=== PATIENT | female | born 1980 | race Caucasian/White ===

== ENCOUNTER 2017-02-14 00:08 | Inpatient (IN) | payer BC ==
[2017-02-14] MEDS ORDERED: ceFAZolin 2 GM in Premix Bag 1 BAG IV ONE (00:13)
[2017-02-14] MEDS ORDERED: Sodium Chloride 0.9% 10 ML Syringe FLUSH PRN (00:13)
[2017-02-14] MEDS ORDERED: Metoclopramide 10 MG/2 ML SDV IVPUSH ONE (00:13)
[2017-02-14] MEDS ORDERED: Citric Acid/Sodium Citrate Solution 30 ML Cup PO ONE (00:13)
[2017-02-14] MEDS ORDERED: Oxytocin/Lactated Ringers 10 UNIT/1,000 ML BAG IV SCH (00:15)
[2017-02-14] MEDS ORDERED: Lactated Ringers 1,000 ML IV SCH (00:15)
[2017-02-14] MEDS ORDERED: Bupivacaine 0.5% 30 ML SDV ONE (00:25)
[2017-02-14] MEDS ORDERED: ceFAZolin 1 GM Vial ONE (00:45)
[2017-02-14] MEDS ORDERED: Phenylephrine/Normal Saline 100 MCG/ML 10 ML Syringe ONE (00:45)
[2017-02-14] MEDS ORDERED: Morphine PF 10 MG/10 ML SDV ONE (00:45)
[2017-02-14] MEDS ORDERED: Oxytocin 10 Units/1 ML SDV ONE (00:45)
[2017-02-14] MEDS ORDERED: Ondansetron 4 MG/2 ML SDV ONE (00:45)
[2017-02-14] MEDS ORDERED: Ketorolac 30 MG/ML SDV ONE (00:45)
[2017-02-14] MEDS ORDERED: Lactated Ringers 1,000 ML ONE (00:45)
--- NOTE | 2017-02-14 00:48 | PCM.PREANE ---
Preanesthetic Assessment - Physical Assessment Pulse: 125 O2 Sat by Pulse Oximetry: 98 Respiratory Rate: 16 Blood Pressure: 127/60 Temperature: 36.2 C Vital Signs: Last Vital Signs Temp 36.2 C 02/14/17 00:28 Pulse 125 H 02/14/17 00:28 Resp 16 02/14/17 00:28 BP 127/60 02/14/17 00:28 Pulse Ox 98 02/14/17 00:28 - Lab Values: Laboratory Last Values WBC 12.12 K/mm3 (3.98-10.04) H 02/14/17 00:20 RBC 4.04 M/mm3 (3.98-5.22) 02/14/17 00:20 Hgb 13.2 gm/L (11.2-15.7) 02/14/17 00:20 Hct 37.8 % (34.1-44.9) 02/14/17 00:20 MCV 93.6 fl (79.4-94.8) 02/14/17 00:20 MCH 32.7 pg (25.6-32.2) H 02/14/17 00:20 MCHC 34.9 g/dl (32.2-35.5) 02/14/17 00:20 RDW Std Deviation 45.8 fL (36.4-46.3) 02/14/17 00:20 Plt Count 177 K/mm3 (182-369) L 02/14/17 00:20 MPV 11.1 fl (9.4-12.3) 02/14/17 00:20 Neut % (Auto) 78.4 % (34.0-71.1) H 02/14/17 00:20 Lymph % (Auto) 14.4 % (19.3-51.7) L 02/14/17 00:20 [place] % (Auto) 6.1 % (4.7-12.5) 02/14/17 00:20 Eos % (Auto) 0.7 (0.7-5.8) 02/14/17 00:20 Baso % (Auto) 0.1 % (0.1-1.2) 02/14/17 00:20 Neut # (Auto) 9.50 K/mm3 (1.56-6.13) H 02/14/17 00:20 Lymph # (Auto) 1.75 K/mm3 (1.18-3.74) 02/14/17 00:20 [place] # (Auto) 0.74 K/mm3 (0.24-0.36) H 02/14/17 00:20 Eos # (Auto) 0.08 K/mm3 (0.04-0.36) 02/14/17 00:20 Baso # (Auto) 0.01 K/mm3 (0.01-0.08) 02/14/17 00:20 - Allergies Allergies/Adverse Reactions: Allergies Allergy/AdvReac Type Severity Reaction Status Date / Time Dairy Products AdvReac Other Verified 02/14/17 00:01 PreAnesthesia Questionnaire - CURRENT (IN HOUSE) MEDS Current Meds: Current Medications Lactated Ringer's (Ringers, Lactated) 1,000 mls @ 125 mls/hr IV [facility]ED [facility] Last Admin: 02/14/17 00:32 Dose: 125 mls/hr Oxytocin/Lactated Ringer's (Pitocin In Lr 10 Units/1,000 Ml) 10 unit in 1,000 mls @ 100 mls/hr IV [facility] Sodium Chloride (Saline Flush) 10 ml FLUSH ASDIRECTED PRN PRN Reason: Keep Vein Open Discontinued Medications Bupivacaine HCl (Marcaine 0.5%) Confirm Administered Dose 30 ml .ROUTE .STK-MED ONE Stop: 02/14/17 00:26 Cefazolin Sodium (Ancef) Confirm Administered Dose 2 gm .ROUTE .STK-MED ONE Stop: 02/14/17 00:46 Citric Acid/Sodium Citrate (Bicitra Solution) 30 ml PO ONETIME ONE Stop: 02/14/17 00:14 Last Admin: 02/14/17 00:32 Dose: 30 ml Cefazolin Sodium/Dextrose 2 gm (/ Premix) 50 mls @ 100 mls/hr IV ONETIME ONE Stop: 02/14/17 00:42 Lactated Ringer's (Ringers, Lactated) Confirm Administered Dose 1,000 mls @ as directed .ROUTE .STK-MED ONE Stop: 02/14/17 00:46 Ketorolac Tromethamine (Toradol) Confirm Administered Dose 30 mg .ROUTE .STK- MED ONE Stop: 02/14/17 00:46 Metoclopramide HCl (Reglan) 10 mg IVPUSH ONETIME ONE Stop: 02/14/17 00:14 Last Admin: 02/14/17 00:32 Dose: 10 mg Morphine Sulfate (Duramorph Pf) Confirm Administered Dose 10 mg .ROUTE .STK-MED ONE Stop: 02/14/17 00:46 Ondansetron HCl (Zofran) Confirm Administered Dose 4 mg .ROUTE .STK-MED ONE Stop: 02/14/17 00:46 Oxytocin (Pitocin) Confirm Administered Dose 10 unit .ROUTE .STK-MED ONE Stop: 02/14/17 00:46 Phenylephrine HCl (Phenylephrine In Ns 100 Mcg/Ml) Confirm Administered Dose 1 mg .ROUTE .STK-MED ONE Stop: 02/14/17 00:46 Preanesthetic Assessment - ANESTHESIA/TRANSFUSION/FAMILY HX Anesthesia/Transfusion History: No Prior Anesthesia, No Prior Transfusion(s) Family History of Anesthesia Reaction: No Intubation History: Unknown - REVIEW OF SYSTEMS Constitutional: Reports: no symptoms 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 Respiratory: Reports: no symptoms Cardiovascular: Reports: no symptoms GI: Reports: no symptoms Other: Reports: Easy Bruising - PHYSICAL ASSESSMENT HR: 125 O2 Sat by Pulse Oximetry: 98 RR: 16 BP: 127/60 Temp: 36.2 C Vital Signs: Last Vital Signs Temp 36.2 C 02/14/17 00:28 Pulse 125 H 02/14/17 00:28 Resp 16 02/14/17 00:28 BP 127/60 02/14/17 00:28 Pulse Ox 98 02/14/17 00:28 Height: 1.57 m Weight: 74.642 kg NPO Status Date: 02/13/17 NPO Status Time: 19:00 ASA Class: 2E Mental Status: Alert & Oriented x3 Airway Class: Mallampati = 2 Dentition: Reports: Normal Dentition, Caries Thyro-Mental Finger Breadths: 3 Mouth Opening Finger Breadths: 3 ROM/Head Extension: Full Respiratory Status: lungs clear to auscultation bilaterally Cardiovascular Status: regular rate & rhythm, normal S1, S2, no murmur, blood pressure WNL - LAB Values: Laboratory Last Values WBC 12.12 K/mm3 (3.98-10.04) H 02/14/17 00:20 RBC 4.04 M/mm3 (3.98-5.22) 02/14/17 00:20 Hgb 13.2 gm/L (11.2-15.7) 02/14/17 00:20 Hct 37.8 % (34.1-44.9) 02/14/17 00:20 MCV 93.6 fl (79.4-94.8) 02/14/17 00:20 MCH 32.7 pg (25.6-32.2) H 02/14/17 00:20 MCHC 34.9 g/dl (32.2-35.5) 02/14/17 00:20 RDW Std Deviation 45.8 fL (36.4-46.3) 02/14/17 00:20 Plt Count 177 K/mm3 (182-369) L 02/14/17 00:20 MPV 11.1 fl (9.4-12.3) 02/14/17 00:20 Neut % (Auto) 78.4 % (34.0-71.1) H 02/14/17 00:20 Lymph % (Auto) 14.4 % (19.3-51.7) L 02/14/17 00:20 [place] % (Auto) 6.1 % (4.7-12.5) 02/14/17 00:20 Eos % (Auto) 0.7 (0.7-5.8) 02/14/17 00:20 Baso % (Auto) 0.1 % (0.1-1.2) 02/14/17 00:20 Neut # (Auto) 9.50 K/mm3 (1.56-6.13) H 02/14/17 00:20 Lymph # (Auto) 1.75 K/mm3 (1.18-3.74) 02/14/17 00:20 [place] # (Auto) 0.74 K/mm3 (0.24-0.36) H 02/14/17 00:20 Eos # (Auto) 0.08 K/mm3 (0.04-0.36) 02/14/17 00:20 Baso # (Auto) 0.01 K/mm3 (0.01-0.08) 02/14/17 00:20 Reviewed and noted. - ALLERGIES Allergies/Adverse Reactions: Allergies Allergy/AdvReac Type Severity Reaction Status Date / Time Dairy Products AdvReac Other Verified 02/14/17 00:01 - ANESTHESIA PLAN Preop Beta Lisa: No Anesthesia Type Planned: Spinal - ACKNOWLEDGEMENTS Pt an Appropriate Candidate for the Planned Anesthesia: Yes Alternatives and Risks of Anesthesia Discussed w Pt/Guardian: Yes Pt/Guardian Understands and Agrees with Anesthesia Plan: Yes
--- NOTE | 2017-02-14 00:50 | PCM.OPNOTE ---
- General Post-Op/Procedure Note Date of Surgery/Procedure: 02/14/17 Operative Procedure(s): primary section - low transverse Findings: viable male, vertex, normal uterus tubes and ovaries. Baby boy at 0118, 8/9 APGARS, 8#1oz Pre Op Diagnosis: labor, history of 4th degree laceration, IUP at 39w2 Post-Op Diagnosis: Same Anesthesia Technique: Spinal Primary Surgeon: Maritza Griffith Fluid Replacement, Intraop: 1,100 Output, Urine Amount: 40 EBL in mLs: 500 Complications: None Condition: Good Free Text/Narrative:: The patient was taken to the operating room where spinal anesthesia was dosed to surgical levels without difficulty. The patient was prepped and draped in the usual sterile fashion in the dorsal supine position with a leftward tilt. A Pfannenstiel skin incision was made with the scalpel and carried through to the underlying layer of fascia. The fascia was incised in the midline and extended laterally using Dee scissors. Alessio clamps were used to elevate the superior aspect of the fascial incision, which was elevated, and the underlying rectus muscles were dissected off bluntly and using Dee scissors. Attention was then turned to the inferior aspect of the fascial incision, which in similar fashion was grasped with Alessio clamps, elevated, and the underlying rectus muscles were dissected off bluntly and using the dee. The rectus muscles were dissected in the midline. The peritoneum was identified and entered using Metzenbaum scissors; this incision was extended superiorly and inferiorly with good visualization of the bladder. The bladder blade was inserted. The vesicouterine peritoneum was identified and entered sharply using Metzenbaum scissors. This incision was extended laterally and the bladder flap was created digitally. The bladder blade was reinserted. The lower uterine segment was incised in a transverse fashion using the scalpel and extended using bandage scissors as well as manual traction. Clear fluid was noted. The infant was subsequently delivered by flexing the head to the incision. Body and shoulders followed without difficulty. The cord was clamped and cut. The infant was subsequently handed to the awaiting screening technician whose presence had been requested.. The placenta was delivered spontaneously intact with a three-vessel cord noted. The uterus was exteriorized and cleared of all clots and debris. The uterine incision was repaired in 2 layers using 0 monocryl. Hemostasis was visualized. Hemostasis was visualized bilaterally. The uterus was returned to the abdomen. The uterine incision was reexamined and it was noted to be hemostatic. The pelvis was copiously irrigated. The fascia was closed with 1 PDS suture, and the skin was closed with 3-0 monocryl. Sponge, lap, and instrument counts were correct x2. The patient was stable at the completion of the procedure and was subsequently transferred to the recovery room in stable condition.
[2017-02-14] MEDS ORDERED: Diphtheria,Pertussis(Acell),Tetanus Vaccine 0.5 ML SDV inactive IM ONE (01:11)
[2017-02-14] MEDS ORDERED: fentaNYL 100 MCG/2 ML SDV IVPUSH PRN (01:24)
[2017-02-14] MEDS ORDERED: ePHEDrine 50 MG/ML SDV IVPUSH PRN (01:24)
[2017-02-14] MEDS ORDERED: HYDROmorphone 0.5 MG/0.5 ML Syringe IVPUSH PRN (01:24)
[2017-02-14] MEDS ORDERED: Ondansetron 4 MG/2 ML SDV IVPUSH PRN (01:24)
[2017-02-14] MEDS ORDERED: Meperidine PF 50 MG/ML Syringe IVPUSH PRN (01:24)
[2017-02-14] MEDS ORDERED: diphenhydrAMINE 50 MG/ML SDV IVPUSH PRN (01:24)
[2017-02-14] MEDS ORDERED: Phenylephrine 1 MG in Sodium Chloride 0.9% 10 ML IV SCH (01:30)
[2017-02-14] MEDS ORDERED: Meperidine PF 50 MG/ML Syringe ONE (01:41)
--- NOTE | 2017-02-14 02:07 | PCM.POSTAN ---
POST ANESTHESIA ASSESSMENT - MENTAL STATUS Mental Status: alert - VITAL SIGNS Pulse Rate: 98 SaO2: 99 Resp Rate: 14 Blood Pressure: 134/66 (patient shivering badly, demerol repeated.) Temperature: 36.9 C - RESPIRATORY Respiratory Status: respiratory rate WNL, airway patent, O2 saturation stable - CARDIOVASCULAR CV Status: pulse rate WNL, blood pressure stable - GASTROINTESTINAL GI Status: no symptoms - POST OP HYDRATION Hydration Status: adequate & stable
[2017-02-14] MEDS ORDERED: Docusate Sodium 100 MG Cap PO PRN (02:25)
[2017-02-14] MEDS ORDERED: Lanolin 100% Cream 7 GM Tube TOP PRN (02:25)
[2017-02-14] MEDS: Dextrose 5%-Lactated Ringers 1,000 ML IV SCH ×2 (03:30→08:35)
--- NOTE | 2017-02-14 09:11 | PCM48HPAN ---
Post Anesthesia Note - EVALUATION WITHIN 48HRS OF ANESTHETIC Vital Signs in Normal Range: Yes Patient Participated in Evaluation: Yes Respiratory Function Stable: Yes Airway Patent: Yes Cardiovascular Function Stable: Yes Hydration Status Stable: Yes Pain Control Satisfactory: Yes Nausea and Vomiting Control Satisfactory: Yes Mental Status Recovered: Yes - COMMENTS/OBSERVATIONS Free Text/Narrative:: Pt denies headache, fever/chills, nausea/vomiting. Reports residual "pins and needles" feeling in bilateral feet, and some lower extremity weakness. since surgery was only ~5-6 hrs ago, will monitor throughout day today for full resolution. drinking without problems. Reports spinal worked well.
[2017-02-14] MEDS ORDERED: Simethicone 80 MG Tab.Chew PO PRN (09:35)
[2017-02-14] MEDS ORDERED: Dextrose 5%-Lactated Ringers 1,000 ML IV SCH (09:45)
[2017-02-14] MEDS: Ibuprofen 600 MG Tab PO PRN ×2 (13:41→21:24)
[2017-02-14] MEDS: Acetaminophen/oxyCODONE 325-5 MG Tab PO PRN (17:57)
[2017-02-15] MEDS: Acetaminophen/oxyCODONE 325-5 MG Tab PO PRN ×3 (01:38→18:49)
[2017-02-15] MEDS: Ibuprofen 600 MG Tab PO PRN ×2 (05:37→15:07)
--- NOTE | 2017-02-15 06:22 | PCM.PNPP ---
- General Info Date of Service: 02/15/17 Functional Status: Reports: pain controlled - Review of Systems General: Reports: No Symptoms HEENT: Reports: no symptoms Pulmonary: Reports: no symptoms Cardiovascular: Reports: No Symptoms Gastrointestinal: Reports: No symptoms Genitourinary: Reports: no symptoms Musculoskeletal: Reports: no symptoms Skin: Reports: no symptoms Neurological: Reports: No Symptoms Psychiatric: Reports: no symptoms - General Info Date of Service: 02/15/17 - Patient Data Vital Signs - most recent: Last Vital Signs Temp 36.7 C 02/15/17 05:36 Pulse 92 02/15/17 05:36 Resp 15 02/15/17 05:36 BP 122/44 L 02/15/17 05:36 Pulse Ox 100 02/15/17 05:36 Weight - most recent: 74.642 kg I&O - last 24 hours: Intake & Output 02/14/17 02/14/17 02/15/17 14:59 22:59 06:59 Intake Total 120 Output Total 850 1000 Balance -730 -1000 Lab Results - last 24 hrs: Laboratory Results - last 24 hr 02/14/17 02/15/17 Range/Units 00:20 05:03 WBC 9.15 (3.98-10.04) K/mm3 RBC 2.97 L (3.98-5.22) M/mm3 Hgb 9.6 L (11.2-15.7) gm/L Hct 29.6 L (34.1-44.9) % MCV 99.7 H (79.4-94.8) fl MCH 32.3 H (25.6-32.2) pg MCHC 32.4 (32.2-35.5) g/dl RDW Std Deviation 48.2 H (36.4-46.3) fL Plt Count 138 L (182-369) K/mm3 MPV 10.7 (9.4-12.3) fl Blood Type O POSITIVE Gel Antibody Screen Negative Med Orders - Current: Current Medications Docusate Sodium (Colace) 100 mg PO BID PRN PRN Reason: Constipation Emollient Ointment (Lansinoh Hpa) 0 gm TOP ASDIRECTED PRN PRN Reason: Sore Nipples Dextrose/Lactated Ringer's (Dextrose 5%-Lactated Ringers) 1,000 mls @ 125 [facility] Last Admin: 02/14/17 13:56 Dose: 125 mls/hr Ibuprofen (Motrin) 600 mg PO Q6H PRN PRN Reason: Pain Last Admin: 02/15/17 05:37 Dose: 600 mg Oxycodone/Acetaminophen (Percocet 325-5 Mg) 2 tab PO Q6H PRN PRN Reason: Pain (moderate 4-6) Last Admin: 02/15/17 01:38 Dose: 1 tab Simethicone (Simethicone) 80 mg PO QID PRN PRN Reason: gas pain Discontinued Medications Bupivacaine HCl (Marcaine 0.5%) Confirm Administered Dose 30 ml .ROUTE .STK-MED ONE Stop: 02/14/17 00:26 Last Admin: 02/14/17 01:14 Dose: 20 ml Cefazolin Sodium (Ancef) Confirm Administered Dose 2 gm .ROUTE .STK-MED ONE Stop: 02/14/17 00:46 Citric Acid/Sodium Citrate (Bicitra Solution) 30 ml PO ONETIME ONE Stop: 02/14/17 00:14 Last Admin: 02/14/17 00:32 Dose: 30 ml Diphenhydramine HCl (Benadryl) 25 mg IVPUSH Q6H PRN PRN Reason: pruritis Diphtheria/Tetanus/Acell Pertussis (Boostrix) 0.5 ml IM .ONCE ONE Stop: 02/14/17 01:12 Ephedrine Sulfate (Ephedrine Sulfate) 5 mg IVPUSH ASDIRECTED PRN PRN Reason: Hypotension Fentanyl (Sublimaze) 50 mcg IVPUSH Q5M PRN PRN Reason: Pain Stop: 02/14/17 01:40 Hydromorphone HCl (Dilaudid) 0.5 mg IVPUSH Q15M PRN PRN Reason: severe pain Stop: 02/14/17 01:40 Lactated Ringer's (Ringers, Lactated) 1,000 mls @ 125 [facility] Last Admin: 02/14/17 00:32 Dose: 125 mls/hr Oxytocin/Lactated Ringer's (Pitocin In Lr 10 Units/1,000 Ml) 10 unit in 1,000 mls @ [facility] Cefazolin Sodium/Dextrose 2 gm (/ Premix) 50 mls @ 100 mls/hr IV ONETIME ONE Stop: 02/14/17 00:42 Last Admin: 02/14/17 03:45 Dose: Not Given Lactated Ringer's (Ringers, Lactated) Confirm Administered Dose 1,000 mls @ as directed .ROUTE .STK-MED ONE Stop: 02/14/17 00:46 Phenylephrine HCl 1 mg/ Sodium (Chloride) 10.1 mls @ 1 mls/sec IV TITRATE [facility] Dextrose/Lactated Ringer's (Dextrose 5%-Lactated Ringers) 1,000 mls @ 125 mls/ hr IV ASDIRECTED [facility] Stop: 02/14/17 11:14 Last Admin: 02/14/17 08:35 Dose: 125 mls/hr Ketorolac Tromethamine (Toradol) Confirm Administered Dose 30 mg .ROUTE .STK- MED ONE Stop: 02/14/17 00:46 Meperidine HCl (Demerol) 12.5 mg IVPUSH ONETIME PRN PRN Reason: shivering Stop: 02/15/17 01:25 Last Admin: 02/14/17 02:01 Dose: 12.5 mg Meperidine HCl (Demerol) Confirm Administered Dose 50 mg .ROUTE .STK-MED ONE Stop: 02/14/17 01:42 Metoclopramide HCl (Reglan) 10 mg IVPUSH ONETIME ONE Stop: 02/14/17 00:14 Last Admin: 02/14/17 00:32 Dose: 10 mg Morphine Sulfate (Duramorph Pf) Confirm Administered Dose 10 mg .ROUTE .STK-MED ONE Stop: 02/14/17 00:46 Ondansetron HCl (Zofran) Confirm Administered Dose 4 mg .ROUTE .STK-MED ONE Stop: 02/14/17 00:46 Ondansetron HCl (Zofran) 4 mg IVPUSH ONETIME PRN PRN Reason: Nausea/Vomiting Oxytocin (Pitocin) Confirm Administered Dose 10 unit .ROUTE .STK-MED ONE Stop: 02/14/17 00:46 Phenylephrine HCl (Phenylephrine In Ns 100 Mcg/Ml) Confirm Administered Dose 1 mg .ROUTE .STK-MED ONE Stop: 02/14/17 00:46 Sodium Chloride (Saline Flush) 10 ml FLUSH ASDIRECTED PRN PRN Reason: Keep Vein Open - Interaction Support Person: - Recovery Exam Fundal Tone: Firm Fundal Level: 1 Fingerbreadths Above Umbilicus Fundal Placement: Midline Lochia Amount: Small Lochia Color: Rubra/Red Perineum Description: Intact, Minimal Bruising/Swelling Episiotomy/Laceration: None Bladder Status: Voiding Urinary Elimination: Indwelling Catheter - Exam General: alert, oriented HEENT: Pupils equal Neck: supple Lungs: Clear to auscultation, Normal respiratory effort Cardiovascular: Regular Rate, Regular Rhythm Abdomen: bowel sounds present, soft, no tenderness Extremities: no edema Skin: warm, dry, intact Wound/Incisions: healing well Neurological: no new focal deficit Psy/Mental Status: alert, normal affect, normal mood - Problem List Review Problem List Initiated/Reviewed/Updated: Yes - My Orders Last 24 Hours: My Active Orders 02/14/17 06:58 Communication Order [RC] ASDIRECTED 02/14/17 09:35 Ibuprofen [Motrin] 600 mg PO Q6H PRN Simethicone 80 mg PO QID PRN 02/14/17 09:45 Dextrose 5%-Lactated Ringers 1,000 ml IV ASDIRECTED 02/14/17 Breakfast Regular Diet [DIET] 02/15/17 02:25 Heat Therapy [OM.PC] PRN - Assessment Assessment:: POD1 s/p 1LTCS for breech. Doing great. Pain controlled. - Plan Plan:: Term . Doing well. No issues.
[2017-02-16] MEDS: Ibuprofen 600 MG Tab PO PRN ×2 (00:17→09:22)
[2017-02-16] MEDS: Acetaminophen/oxyCODONE 325-5 MG Tab PO PRN ×2 (06:11→12:46)
[2017-02-16 11:19] VITALS: BP 128/76
--- NOTE | 2017-03-02 22:23 | PCM.DCSUM1 ---
Discharge Summary - Hospital Course Brief History: Admitted for active labor prior to scheduled - Discharge Data Discharge Date: 02/17/17 Discharge Disposition: Home, Self-Care 01 Condition: Good - Patient Summary/Data Operative Procedure(s) Performed: primary section - low transverse - Patient Instructions Diet: Usual Diet as Tolerated Activity: No Strenuous Activities Driving: Do Not Drive Showering/Bathing: May Shower, No Showering, No Tub Bathing/Swimming, May Shower in 3 Days, Shower in AM Notify Provider of: Fever, Increased Pain - Discharge Plan Home Medications: Home Meds PNV95/Ferrous Fumarate/FA [ Vitamin Tablet] 1 tab PO DAILY 02/14/17 [ History] Patient Handouts: , Home Care Instructions for Mom Referrals: Maritza Griffith MD [Primary Care Provider] - - Discharge Summary/Plan Comment DC Time >30 min.: No - General Info Date of Service: 03/02/17 Functional Status: Reports: pain controlled - Review of Systems General: Reports: No Symptoms HEENT: Reports: no symptoms Pulmonary: Reports: no symptoms Cardiovascular: Reports: No Symptoms Gastrointestinal: Reports: No symptoms Genitourinary: Reports: no symptoms Musculoskeletal: Reports: no symptoms Skin: Reports: no symptoms Neurological: Reports: No Symptoms Psychiatric: Reports: no symptoms - Patient Data Vitals - Most Recent: Last Vital Signs Temp 36.7 C 02/16/17 11:10 Pulse 90 02/16/17 11:10 Resp 16 02/16/17 11:10 BP 128/76 02/16/17 11:10 Pulse Ox 100 02/16/17 11:10 Weight - Most Recent: 74.642 kg I&O - Last 24 hours: Intake & Output 03/02/17 03/02/17 03/02/17 06:59 14:59 22:59 Intake Total 1100 Output Total 40 Balance 1060 Med Orders - Current: Current Medications Discontinued Medications Bupivacaine HCl (Marcaine 0.5%) Confirm Administered Dose 30 ml .ROUTE .STK-MED ONE Stop: 02/14/17 00:26 Last Admin: 02/14/17 01:14 Dose: 20 ml Cefazolin Sodium (Ancef) Confirm Administered Dose 2 gm .ROUTE .STK-MED ONE Stop: 02/14/17 00:46 Citric Acid/Sodium Citrate (Bicitra Solution) 30 ml PO ONETIME ONE Stop: 02/14/17 00:14 Last Admin: 02/14/17 00:32 Dose: 30 ml Diphenhydramine HCl (Benadryl) 25 mg IVPUSH Q6H PRN PRN Reason: pruritis Diphtheria/Tetanus/Acell Pertussis (Boostrix) 0.5 ml IM .ONCE ONE Stop: 02/14/17 01:12 Docusate Sodium (Colace) 100 mg PO BID PRN PRN Reason: Constipation Emollient Ointment (Lansinoh Hpa) 0 gm TOP ASDIRECTED PRN PRN Reason: Sore Nipples Ephedrine Sulfate (Ephedrine Sulfate) 5 mg IVPUSH ASDIRECTED PRN PRN Reason: Hypotension Fentanyl (Sublimaze) 50 mcg IVPUSH Q5M PRN PRN Reason: Pain Stop: 02/14/17 01:40 Hydromorphone HCl (Dilaudid) 0.5 mg IVPUSH Q15M PRN PRN Reason: severe pain Stop: 02/14/17 01:40 Lactated Ringer's (Ringers, Lactated) 1,000 mls @ 125 mls/hr IV ASDIRECTED [facility] Last Admin: 02/14/17 00:32 Dose: 125 mls/hr Oxytocin/Lactated Ringer's (Pitocin In Lr 10 Units/1,000 Ml) 10 unit in 1,000 mls @ 100 mls/hr IV ASDIRECTED [facility] Cefazolin Sodium/Dextrose 2 gm (/ Premix) 50 mls @ 100 mls/hr IV ONETIME ONE Stop: 02/14/17 00:42 Last Admin: 02/14/17 03:45 Dose: Not Given Lactated Ringer's (Ringers, Lactated) Confirm Administered Dose 1,000 mls @ as directed .ROUTE .STK-MED ONE Stop: 02/14/17 00:46 Phenylephrine HCl 1 mg/ Sodium (Chloride) 10.1 mls @ 1 mls/sec IV TITRATE [facility] Dextrose/Lactated Ringer's (Dextrose 5%-Lactated Ringers) 1,000 mls @ 125 mls/ hr IV ASDIRECTED [facility] Stop: 02/14/17 11:14 Last Admin: 02/14/17 08:35 Dose: 125 mls/hr Dextrose/Lactated Ringer's (Dextrose 5%-Lactated Ringers) 1,000 mls @ 125 mls/ hr IV ASDIRECTED [facility] Last Admin: 02/14/17 13:56 Dose: 125 mls/hr Ibuprofen (Motrin) 600 mg PO Q6H PRN PRN Reason: Pain Last Admin: 02/16/17 09:22 Dose: 600 mg Ketorolac Tromethamine (Toradol) Confirm Administered Dose 30 mg .ROUTE .STK- MED ONE Stop: 02/14/17 00:46 Meperidine HCl (Demerol) 12.5 mg IVPUSH ONETIME PRN PRN Reason: shivering Stop: 02/15/17 01:25 Last Admin: 02/14/17 02:01 Dose: 12.5 mg Meperidine HCl (Demerol) Confirm Administered Dose 50 mg .ROUTE .STK-MED ONE Stop: 02/14/17 01:42 Metoclopramide HCl (Reglan) 10 mg IVPUSH ONETIME ONE Stop: 02/14/17 00:14 Last Admin: 02/14/17 00:32 Dose: 10 mg Morphine Sulfate (Duramorph Pf) Confirm Administered Dose 10 mg .ROUTE .STK-MED ONE Stop: 02/14/17 00:46 Ondansetron HCl (Zofran) Confirm Administered Dose 4 mg .ROUTE .STK-MED ONE Stop: 02/14/17 00:46 Ondansetron HCl (Zofran) 4 mg IVPUSH ONETIME PRN PRN Reason: Nausea/Vomiting Oxycodone/Acetaminophen (Percocet 325-5 Mg) 2 tab PO Q6H PRN PRN Reason: Pain (moderate 4-6) Last Admin: 02/16/17 12:46 Dose: 1 tab Oxytocin (Pitocin) Confirm Administered Dose 10 unit .ROUTE .STK-MED ONE Stop: 02/14/17 00:46 Phenylephrine HCl (Phenylephrine In Ns 100 Mcg/Ml) Confirm Administered Dose 1 mg .ROUTE .STK-MED ONE Stop: 02/14/17 00:46 Simethicone (Simethicone) 80 mg PO QID PRN PRN Reason: gas pain Sodium Chloride (Saline Flush) 10 ml FLUSH ASDIRECTED PRN PRN Reason: Keep Vein Open - Exam General: Reports: alert, oriented HEENT: Reports: Pupils equal, Pupils reactive, EOMI, Mucous membr. moist/pink Neck: Reports: supple Lungs: Reports: Clear to auscultation, Normal respiratory effort Cardiovascular: Reports: Regular Rate, Regular Rhythm Abdomen: Reports: bowel sounds present, soft, no tenderness, no distension (Female) Exam: Normal external exam, Normal speculum exam, Normal bimanual exam Back Exam: Reports: normal inspection, full range of motion Extremities: Reports: no edema, normal pulses Skin: Reports: warm, dry, intact Wound/Incisions: Reports: healing well Neurological: Reports: no new focal deficit Psy/Mental Status: Reports: alert, normal affect, normal mood *Q Meaningful Use (DIS) - VTE *Q VTE Criteria *Q: - Stroke *Q Stroke Criteria *Q: - AMI *Q AMI Criteria *Q:
== END 2017-02-16 17:00 | disposition home or self-care (01) | DRG 540 ==
LOC: JD.OB 00:08 → MERGE 00:08
PROVIDERS: ADMIT Obstetrics & Gynecology; ATTEND Obstetrics & Gynecology
PROC: 10D00Z1 Extraction of Products of Conception, Low, Open Approach (ICD-10-PCS; principal; 2017-02-14)
DX: O82 Encounter for cesarean delivery without indication (principal); Z3A.39 39 weeks gestation of pregnancy; Z37.0 Single live birth; Z91.011 Allergy to milk products
CPT/HCPCS: 01961; 36415; 85025; 85027; 86850; 86900; 86901; 94762; A9270-GY; J0690; J1885; J2175; J2270; J2405; J2590; J2765; J7042; J7120

== ENCOUNTER 2018-12-25 13:08 | Inpatient (IN) | payer BC ==
[2018-12-25] MEDS ORDERED: Bupivacaine 0.5% 30 ML SDV ONE (14:28)
[2018-12-25] MEDS ORDERED: Nalbuphine 20 MG/ML 1 ML Syringe IVPUSH PRN (14:40)
[2018-12-25] MEDS ORDERED: Citric Acid/Sodium Citrate Solution 30 ML Cup PO ONE (14:40)
[2018-12-25] MEDS ORDERED: Metoclopramide 10 MG/2 ML SDV IVPUSH ONE (14:40)
[2018-12-25] MEDS ORDERED: ceFAZolin 2 GM in Premix Bag 1 BAG IV ONE (14:40)
[2018-12-25] MEDS ORDERED: Sodium Chloride 0.9% 10 ML Syringe FLUSH PRN (14:40)
[2018-12-25] MEDS ORDERED: Diphtheria,Pertussis(Acell),Tetanus Vaccine 0.5 ML Syringe IM ONE (14:45)
[2018-12-25] MEDS ORDERED: Lactated Ringers 1,000 ML IV SCH (14:45)
[2018-12-25] MEDS ORDERED: Oxytocin/Lactated Ringers 10 UNIT/1,000 ML BAG IV SCH (14:45)
--- NOTE | 2018-12-25 15:30 | PCM.PREANE ---
Preanesthetic Assessment - Anesthesia/Transfusion/Family Hx Anesthesia History: Prior Anesthesia Reaction Type of Anesthesia Reaction: Excessive Shivering, Other (see below) ( Significant convulsions/shaking per patient. Started prior to her spinal and continued for a few hours after surgery. ) Other Type of Anesthesia Reaction Comment: excessive shaking Family History of Anesthesia Reaction: Yes (Very sensitive.) Transfusion History: No Prior Transfusion(s) - Review of Systems General: No Symptoms Pulmonary: No Symptoms Cardiovascular: Other (Tachycardia. Baseline around 110. ) Gastrointestinal: No Symptoms Neurological: No Symptoms Other: Reports: None - Physical Assessment Pulse: 118 O2 Sat by Pulse Oximetry: 99 Respiratory Rate: 16 Blood Pressure: 129/86 Temperature: 37.4 C Vital Signs: Last Vital Signs Temp 37.4 C 12/25/18 13:25 Pulse 118 H 12/25/18 13:25 Resp 16 12/25/18 13:25 BP 129/86 12/25/18 13:25 Pulse Ox 99 12/25/18 13:25 Height: 1.57 m Weight: 80.286 kg ASA Class: 2 Mental Status: Alert & Oriented x3 Airway Class: Mallampati = 2 Dentition: Reports: Normal Dentition Thyro-Mental Finger Breadths: 3 Mouth Opening Finger Breadths: 3 ROM/Head Extension: Full Lungs: Clear to Auscultation, Normal Respiratory Effort Cardiovascular: Regular Rate, Regular Rhythm, Tachycardia - Lab Values: Laboratory Last Values Membrane Rupture Positive H 12/25/18 13:30 - Allergies Allergies/Adverse Reactions: Allergies Allergy/AdvReac Type Severity Reaction Status Date / Time Dairy Products AdvReac Other Verified 02/14/17 00:01 - Anesthesia Plan Pre-Op Medication Ordered: Antacids (Bicitra ), Other (Hold Metoclopramide. Questionable EPS effects with her last . ) - Acknowledgements Anesthesia Type Planned: Spinal Pt an Appropriate Candidate for the Planned Anesthesia: Yes Alternatives and Risks of Anesthesia Discussed w Pt/Guardian: Yes Pt/Guardian Understands and Agrees with Anesthesia Plan: Yes PreAnesthesia Questionnaire - Past Health History Medical/Surgical History: Denies Medical/Surgical History [employer] History: Reports: - Past Surgical History Female Surgical History: Reports: Section - SUBSTANCE USE Smoking Status *Q: Never Smoker Second Hand Smoke Exposure: No Recreational Drug Use History: No - HOME MEDS Home Medications: Home Meds PNV95/Ferrous Fumarate/FA [ Vitamin Tablet] 1 tab PO DAILY 02/14/17 [ History] - CURRENT (IN HOUSE) MEDS Current Meds: Current Medications Lactated Ringer's (Ringers, Lactated) 1,000 mls @ 125 mls/hr IV ASDIRECTED [facility] Last Admin: 12/25/18 15:23 Dose: 999 mls/hr Oxytocin/Lactated Ringer's (Pitocin In Lr 10 Units/1,000 Ml) 10 unit in 1,000 mls @ 500 mls/hr IV ASDIRECTED [facility] Nalbuphine HCl (Nubain) 10 mg IVPUSH Q2H PRN PRN Reason: pain Sodium Chloride (Saline Flush) 10 ml FLUSH ASDIRECTED PRN PRN Reason: Keep Vein Open Discontinued Medications Bupivacaine HCl (Marcaine 0.5%) Confirm Administered Dose 30 ml .ROUTE .STK-MED ONE Stop: 12/25/18 14:29 Citric Acid/Sodium Citrate (Bicitra Solution) 30 ml PO ONETIME ONE Stop: 12/25/18 14:41 Last Admin: 12/25/18 15:23 Dose: 30 ml Diphtheria/Tetanus/Acell Pertussis (Adacel) 0.5 ml IM .ONCE ONE Stop: 12/25/18 14:46 Cefazolin Sodium/Dextrose 2 gm (/ Premix) 50 mls @ 100 mls/hr IV ONETIME ONE Stop: 12/25/18 15:09 Metoclopramide HCl (Reglan) 10 mg IVPUSH ONETIME ONE Stop: 12/25/18 14:41 Last Admin: 12/25/18 15:24 Dose: Not Given
--- NOTE | 2018-12-25 15:36 | PCM.LDHP ---
L&D History of Present Illness - General Date of Service: 12/25/18 Admit Problem/Dx: Patient Status Order with Admit Dx/Problem 12/25/18 13:34 Patient Status [ADT] Routine 12/25/18 14:30 Patient Status [ADT] Routine Admission Diagnosis/Problem Admission Diagnosis/Problem Source of Information: Patient History Limitations: Reports: No Limitations - History of Present Illness Introduction:: 38 year old at 39+ here with SROM at 1045. No contractions. - Related Data Allergies/Adverse Reactions: Allergies Allergy/AdvReac Type Severity Reaction Status Date / Time Dairy Products AdvReac Other Verified 02/14/17 00:01 Home Medications: Home Meds PNV95/Ferrous Fumarate/FA [ Vitamin Tablet] 1 tab PO DAILY 02/14/17 [ History] Past Medical History - Past Health History Medical/Surgical History: Denies Medical/Surgical History [employer] History: Reports: - Past Surgical History Female Surgical History: Reports: Section Social & Family History - Family History Family Medical History: Noncontributory - Tobacco Use Smoking Status *Q: Never Smoker Second Hand Smoke Exposure: No - Caffeine Use Caffeine Use: Reports: None - Recreational Drug Use Recreational Drug Use: No H&P Review of Systems - Review of Systems: Review Of Systems: See Below General: Reports: No Symptoms HEENT: Reports: No Symptoms Pulmonary: Reports: No Symptoms Cardiovascular: Reports: No Symptoms Gastrointestinal: Reports: No Symptoms Genitourinary: Reports: No Symptoms Musculoskeletal: Reports: No Symptoms Skin: Reports: No Symptoms Psychiatric: Reports: No Symptoms Neurological: Reports: No Symptoms Hematologic/Lymphatic: Reports: No Symptoms Immunologic: Reports: No Symptoms L&D Exam - Exam Exam: See Below - Vital Signs Vital Signs: Last Vital Signs Temp 37.4 C 12/25/18 15:30 Pulse 118 H 12/25/18 15:30 Resp 16 12/25/18 15:30 BP 129/86 12/25/18 15:30 Pulse Ox 99 12/25/18 15:30 Weight: 80.286 kg - Exam General: Alert, Oriented HEENT: PERRLA, Conjunctiva Clear, EACs Clear, EOMI, Hearing Intact, Mucosa Moist & [place], Nares Patent, Normal Nasal Septum, Posterior Pharynx Clear, TMs Clear Neck: Supple, Trachea Midline Lungs: Clear to Auscultation, Normal Respiratory Effort Cardiovascular: Regular Rate, Regular Rhythm GI/Abdominal Exam: Normal Bowel Sounds, Soft, Non-Tender, No Organomegaly, No Distention, No Abnormal Bruit, No Mass, Pelvis Stable Rectal Exam: Normal Exam, Normal Rectal Tone Back Exam: Normal Inspection, Full Range of Motion Extremities: Normal Inspection, Normal Range of Motion, Non-Tender, No Pedal Edema, Normal Capillary Refill Skin: Warm, Dry, Intact Neurological: Cranial Nerves Intact, Reflexes Equal Bilateral Psychiatric: Alert, Normal Affect, Normal Mood - Patient Data Lab Results Last 24 hrs: Laboratory Results - last 24 hr 12/25/18 Range/Units 13:30 Membrane Rupture Positive H Problem List Initiated/Reviewed/Updated: Yes Orders Last 24hrs: Active Orders 24 hr Category Date Time Status Patient Status [ADT] Routine ADT 12/25/18 14:30 Active Communication Order [RC] ROUTINE Care 12/25/18 14:40 Active Heart Tones [RC] PER UNIT ROUTINE Care 12/25/18 14:40 Active Non Stress Test [RC] PER UNIT ROUTINE Care 12/25/18 13:34 Active Peripheral IV Care [RC] . DIRECTED Care 12/25/18 14:42 Active Procedure Site Prep Instruct [RC] ASDIRECTED Care 12/25/18 14:40 Active Verify Patient Consent Obtain [RC] PER UNIT ROUTINE Care 12/25/18 14:40 Active Vital Signs [RC] PER UNIT ROUTINE Care 12/25/18 13:34 Active Lactated Ringers [Ringers, Lactated] 1,000 ml Med 12/25/18 14:45 Active IV ASDIRECTED Nalbuphine [Nubain] Med 12/25/18 14:40 Active 10 mg IVPUSH Q2H PRN Oxytocin/Lactated Ringers [Pitocin in LR 10 Units/1,000 Med 12/25/18 14:45 Active ML] 10 unit in 1,000 ml IV ASDIRECTED Sodium Chloride 0.9% [Saline Flush] Med 12/25/18 14:40 Active 10 ml FLUSH ASDIRECTED PRN Peripheral IV Insertion Adult [OM.PC] Routine Oth 12/25/18 14:40 Ordered Schedule Procedure [COMM] Per Unit Routine Oth 12/25/18 14:40 Ordered Resuscitation Status Routine Resus Stat 12/25/18 13:34 Ordered Medication Orders Lactated Ringer's (Ringers, Lactated) 1,000 mls @ 125 mls/hr IV ASDIRECTED [facility] Last Admin: 12/25/18 15:23 Dose: 999 mls/hr Oxytocin/Lactated Ringer's (Pitocin In Lr 10 Units/1,000 Ml) 10 unit in 1,000 mls @ 500 mls/hr IV ASDIRECTED [facility] Nalbuphine HCl (Nubain) 10 mg IVPUSH Q2H PRN PRN Reason: pain Sodium Chloride (Saline Flush) 10 ml FLUSH ASDIRECTED PRN PRN Reason: Keep Vein Open Assessment/Plan Comment:: 38 year old with SROM at 39w3d
--- NOTE | 2018-12-25 17:05 | PCM.OPNOTE ---
- General Post-Op/Procedure Note Date of Surgery/Procedure: 12/25/18 Operative Procedure(s): repeat section Findings: Viable male weight 8 lbs. 1 oz. Apgars 9/9 at 1615 Pre Op Diagnosis: Prior , spontaneous rupture of membranes Post-Op Diagnosis: Same Anesthesia Technique: Spinal Primary Surgeon: Maritza Griffith Cnc Manager: Lexi Greenwood Fluid Replacement, Intraop: 2,000 Output, Urine Amount: 100 EBL in mLs: 700 Complications: None Condition: Good Free Text/Narrative:: The patient was taken to the operating room where epidural anesthesia was dosed to surgical levels without difficulty. The patient was prepped and draped in the usual sterile fashion in the dorsal supine position with a leftward tilt. A Pfannenstiel skin incision was made with the scalpel and carried through to the underlying layer of fascia. The fascia was incised in the midline and extended laterally using Dee scissors. Alessio clamps were used to elevate the superior aspect of the fascial incision, which was elevated, and the underlying rectus muscles were dissected off bluntly and using Dee scissors. Attention was then turned to the inferior aspect of the fascial incision, which in similar fashion was grasped with Alessio clamps, elevated, and the underlying rectus muscles were dissected off bluntly and using the dee. The rectus muscles were dissected in the midline. The peritoneum was entered bluntly; this incision was extended superiorly and inferiorly with good visualization of the bladder. The bladder blade was inserted. The vesicouterine peritoneum was identified and entered sharply using Metzenbaum scissors. This incision was extended laterally and the bladder flap was created digitally. The bladder blade was reinserted. The lower uterine segment was incised in a transverse fashion using the scalpel and with digital traction. Clear fluid was noted. The was subsequently delivered by flexing the head to the incision. Body and shoulders followed without difficulty. The cord was clamped and cut. The was subsequently handed to the awaiting police matron whose presence had been requested.. The placenta was delivered spontaneously intact with a three-vessel cord noted. The uterus was exteriorized and cleared of all clots and debris. The uterine incision was repaired in 2 layers using 0 monocryl. Hemostasis was visualized. Hemostasis was visualized bilaterally. The uterus was returned to the abdomen. The uterine incision was reexamined and it was noted to be hemostatic. The pelvis was copiously irrigated. The fascia was closed with 1 PDS suture, and the skin was closed with 3-0 monocryl. Sponge, lap, and instrument counts were correct x2. The patient was stable at the completion of the procedure and was subsequently transferred to the recovery room in stable condition.
[2018-12-25] MEDS ORDERED: Dextrose 5%-Lactated Ringers 1,000 ML IV SCH (18:24)
[2018-12-25] MEDS ORDERED: Docusate Sodium 100 MG Cap PO PRN (18:24)
[2018-12-25] MEDS ORDERED: Naloxone 0.4 MG/ML SDV IVPUSH PRN (18:24)
[2018-12-25] MEDS ORDERED: ePHEDrine 50 MG/ML SDV IVPUSH PRN (18:24)
[2018-12-25] MEDS ORDERED: Lanolin 100% Cream 7 GM Tube TOP PRN (18:24)
[2018-12-25] MEDS ORDERED: diphenhydrAMINE 50 MG/ML SDV IVPUSH PRN (18:24)
[2018-12-25] MEDS ORDERED: Ketorolac 30 MG/ML SDV IVPUSH SCH (18:30)
[2018-12-25] MEDS: Ketorolac 30 MG/ML SDV IVPUSH SCH (22:39)
[2018-12-26] MEDS: Ketorolac 30 MG/ML SDV IVPUSH SCH ×2 (04:31→10:32)
--- NOTE | 2018-12-26 08:21 | PCM48HPAN ---
Post Anesthesia Note - EVALUATION WITHIN 48HRS OF ANESTHETIC Vital Signs in Normal Range: Yes Patient Participated in Evaluation: Yes Respiratory Function Stable: Yes Airway Patent: Yes Cardiovascular Function Stable: Yes Hydration Status Stable: Yes Pain Control Satisfactory: Yes Nausea and Vomiting Control Satisfactory: Yes Mental Status Recovered: Yes (no complaints) Pulse Rate: 82 Resp Rate: 16 Temperature: 97.5 F Blood Pressure: 111/71
[2018-12-26] MEDS: Acetaminophen/oxyCODONE 325-5 MG Tab PO PRN ×2 (13:01→23:02)
[2018-12-26] MEDS: Ibuprofen 600 MG Tab PO PRN (19:15)
[2018-12-26] MEDS: Simethicone 80 MG Tab.Chew PO PRN (21:27)
[2018-12-27] MEDS: Simethicone 80 MG Tab.Chew PO PRN (04:07)
[2018-12-27] MEDS: Ibuprofen 600 MG Tab PO PRN ×2 (04:53→12:08)
[2018-12-27] MEDS: Acetaminophen/oxyCODONE 325-5 MG Tab PO PRN (08:14)
--- NOTE | 2018-12-27 08:50 | PCM.PNPP ---
- General Info Date of Service: 12/26/18 Functional Status: Reports: Pain Controlled - Review of Systems General: Reports: No Symptoms HEENT: Reports: No Symptoms Pulmonary: Reports: No Symptoms Cardiovascular: Reports: No Symptoms Gastrointestinal: Reports: No Symptoms Genitourinary: Reports: No Symptoms Musculoskeletal: Reports: No Symptoms Skin: Reports: No Symptoms Neurological: Reports: No Symptoms Psychiatric: Reports: No Symptoms - Patient Data Vital Signs - Most Recent: Last Vital Signs Temp 36.5 C 12/27/18 03:00 Pulse 80 12/26/18 20:00 Resp 14 12/27/18 03:00 BP 114/54 L 12/27/18 03:00 Pulse Ox 99 12/27/18 03:00 Weight - Most Recent: 80.286 kg I&O - Last 24 Hours: Intake & Output 12/26/18 12/27/18 12/27/18 22:59 06:59 14:59 Intake Total 120 Balance 120 Lab Results - Last 24 Hours: Laboratory Results - last 24 hr 12/26/18 Range/Units 06:07 RPR Non-reactive (NONREACTIVE) Med Orders - Current: Current Medications Diphenhydramine HCl (Benadryl) 25 mg IVPUSH Q6H PRN PRN Reason: Itching or Nausea Docusate Sodium (Colace) 100 mg PO Q12H PRN PRN Reason: Constipation Emollient Ointment (Lansinoh Hpa) 0 gm TOP ASDIRECTED PRN PRN Reason: Sore Nipples Last Admin: 12/26/18 10:38 Dose: 1 applic Ephedrine Sulfate (Ephedrine Sulfate) 5 mg IVPUSH SEECOMMENT PRN PRN Reason: Other Ibuprofen (Motrin) 600 mg PO Q6H PRN PRN Reason: mild pain or fever Last Admin: 12/27/18 04:53 Dose: 600 mg Naloxone HCl (Narcan) 0.1 mg IVPUSH SEECOMMENT PRN PRN Reason: Respiratory Depression Oxycodone/Acetaminophen (Percocet 325-5 Mg) 2 tab PO Q6H PRN PRN Reason: Pain (moderate 4-6) Last Admin: 12/27/18 08:14 Dose: 1 tab Simethicone (Simethicone) 80 mg PO Q4H PRN PRN Reason: Gas Last Admin: 12/27/18 04:07 Dose: 80 mg Discontinued Medications Bupivacaine HCl (Marcaine 0.5%) Confirm Administered Dose 30 ml .ROUTE .STK-MED ONE Stop: 12/25/18 14:29 Citric Acid/Sodium Citrate (Bicitra Solution) 30 ml PO ONETIME ONE Stop: 12/25/18 14:41 Last Admin: 12/25/18 15:23 Dose: 30 ml Diphtheria/Tetanus/Acell Pertussis (Adacel) 0.5 ml IM .ONCE ONE Stop: 12/25/18 14:46 Cefazolin Sodium/Dextrose 2 gm (/ Premix) 50 mls @ 100 mls/hr IV ONETIME ONE Stop: 12/25/18 15:09 Last Admin: 12/25/18 17:29 Dose: Not Given Lactated Ringer's (Ringers, Lactated) 1,000 mls @ 125 mls/hr IV ASDIRECTED [facility] Last Admin: 12/25/18 15:23 Dose: 999 mls/hr Oxytocin/Lactated Ringer's (Pitocin In Lr 10 Units/1,000 Ml) 10 unit in 1,000 mls @ 500 mls/hr IV ASDIRECTED [facility] Dextrose/Lactated Ringer's (Dextrose 5%-Lactated Ringers) 1,000 mls @ 125 mls/ hr IV ASDIRECTED [facility] Stop: 12/26/18 02:23 Last Admin: 12/25/18 19:55 Dose: 125 mls/hr Ketorolac Tromethamine (Toradol) 30 mg IVPUSH Q6H [facility] Stop: 12/26/18 06:31 Last Admin: 12/25/18 23:37 Dose: Not Given Ketorolac Tromethamine (Toradol) 30 mg IVPUSH Q6H [facility] Stop: 12/26/18 10:31 Last Admin: 12/26/18 10:32 Dose: 30 mg Metoclopramide HCl (Reglan) 10 mg IVPUSH ONETIME ONE Stop: 12/25/18 14:41 Last Admin: 12/25/18 15:24 Dose: Not Given Nalbuphine HCl (Nubain) 10 mg IVPUSH Q2H PRN PRN Reason: pain Sodium Chloride (Saline Flush) 10 ml FLUSH ASDIRECTED PRN PRN Reason: Keep Vein Open - Interaction Support Person: - Recovery Exam Fundal Tone: Firm Fundal Level: 1 Fingerbreadths Below Umbilicus Fundal Placement: Midline Lochia Amount: Scant Lochia Color: Rubra/Red Perineum Description: Intact, Minimal Bruising/Swelling Episiotomy/Laceration: None Bladder Status: Voiding Urinary Elimination: Indwelling Catheter - Exam General: Alert, Oriented HEENT: Pupils Equal Neck: Supple Lungs: Clear to Auscultation, Normal Respiratory Effort Cardiovascular: Regular Rate, Regular Rhythm GI/Abdominal Exam: Normal Bowel Sounds, Soft, Non-Tender, No Organomegaly, No Distention, No Abnormal Bruit, No Mass, Pelvis Stable Extremities: Normal Inspection, Normal Range of Motion, Non-Tender, No Pedal Edema, Normal Capillary Refill Wound/Incisions: Healing Well Neurological: No New Focal Deficit Psy/Mental Status: Alert, Normal Affect, Normal Mood - Problem List Review Problem List Initiated/Reviewed/Updated: Yes - My Orders Last 24 Hours: My Active Orders 12/26/18 16:30 Ibuprofen [Motrin] 600 mg PO Q6H PRN 12/26/18 21:09 Simethicone 80 mg PO Q4H PRN - Assessment Assessment:: PPD1 Doing great. No complaints
--- NOTE | 2018-12-27 08:54 | PCM.DCSUM1 ---
Discharge Summary - Hospital Course Diagnosis: Stroke: No - Discharge Data Discharge Date: 12/27/18 Discharge Disposition: Admitted As Inpatient 67 Condition: Good - Patient Summary/Data Operative Procedure(s) Performed: repeat section - Patient Instructions Diet: Usual Diet as Tolerated Activity: No Strenuous Activities Driving: May Drive Today Showering/Bathing: May Shower Notify Provider of: Fever, Increased Pain, Swelling and Redness, Drainage, Nausea and/or Vomiting - Discharge Plan *PRESCRIPTION DRUG MONITORING PROGRAM REVIEWED*: No *COPY OF PRESCRIPTION DRUG MONITORING REPORT IN PATIENT JANELLE: No Home Medications: Home Meds PNV95/Ferrous Fumarate/FA [ Vitamin Tablet] 1 tab PO DAILY 02/14/17 [ History] Referrals: Maritza Griffith MD [Primary Care Provider] - (2 weeks) - Discharge Summary/Plan Comment DC Time >30 min.: No - Review of Systems General: Reports: No Symptoms HEENT: Reports: No Symptoms Pulmonary: Reports: No Symptoms Cardiovascular: Reports: No Symptoms Gastrointestinal: Reports: No Symptoms Genitourinary: Reports: No Symptoms Musculoskeletal: Reports: No Symptoms Skin: Reports: No Symptoms Neurological: Reports: No Symptoms Psychiatric: Reports: No Symptoms - Patient Data Vitals - Most Recent: Last Vital Signs Temp 36.5 C 12/27/18 03:00 Pulse 80 12/26/18 20:00 Resp 14 12/27/18 03:00 BP 114/54 L 12/27/18 03:00 Pulse Ox 99 12/27/18 03:00 Weight - Most Recent: 80.286 kg I&O - Last 24 hours: Intake & Output 12/26/18 12/27/18 12/27/18 22:59 06:59 14:59 Intake Total 120 Balance 120 Lab Results - Last 24 hrs: Laboratory Results - last 24 hr 12/26/18 Range/Units 06:07 RPR Non-reactive (NONREACTIVE) Med Orders - Current: Current Medications Diphenhydramine HCl (Benadryl) 25 mg IVPUSH Q6H PRN PRN Reason: Itching or Nausea Docusate Sodium (Colace) 100 mg PO Q12H PRN PRN Reason: Constipation Emollient Ointment (Lansinoh Hpa) 0 gm TOP ASDIRECTED PRN PRN Reason: Sore Nipples Last Admin: 12/26/18 10:38 Dose: 1 applic Ephedrine Sulfate (Ephedrine Sulfate) 5 mg IVPUSH SEECOMMENT PRN PRN Reason: Other Ibuprofen (Motrin) 600 mg PO Q6H PRN PRN Reason: mild pain or fever Last Admin: 12/27/18 04:53 Dose: 600 mg Naloxone HCl (Narcan) 0.1 mg IVPUSH SEECOMMENT PRN PRN Reason: Respiratory Depression Oxycodone/Acetaminophen (Percocet 325-5 Mg) 2 tab PO Q6H PRN PRN Reason: Pain (moderate 4-6) Last Admin: 12/27/18 08:14 Dose: 1 tab Simethicone (Simethicone) 80 mg PO Q4H PRN PRN Reason: Gas Last Admin: 12/27/18 04:07 Dose: 80 mg Discontinued Medications Bupivacaine HCl (Marcaine 0.5%) Confirm Administered Dose 30 ml .ROUTE .STK-MED ONE Stop: 12/25/18 14:29 Citric Acid/Sodium Citrate (Bicitra Solution) 30 ml PO ONETIME ONE Stop: 12/25/18 14:41 Last Admin: 12/25/18 15:23 Dose: 30 ml Diphtheria/Tetanus/Acell Pertussis (Adacel) 0.5 ml IM .ONCE ONE Stop: 12/25/18 14:46 Cefazolin Sodium/Dextrose 2 gm (/ Premix) 50 mls @ 100 mls/hr IV ONETIME ONE Stop: 12/25/18 15:09 Last Admin: 12/25/18 17:29 Dose: Not Given Lactated Ringer's (Ringers, Lactated) 1,000 mls @ 125 mls/hr IV ASDIRECTED [facility] Last Admin: 12/25/18 15:23 Dose: 999 mls/hr Oxytocin/Lactated Ringer's (Pitocin In Lr 10 Units/1,000 Ml) 10 unit in 1,000 mls @ 500 mls/hr IV ASDIRECTED [facility] Dextrose/Lactated Ringer's (Dextrose 5%-Lactated Ringers) 1,000 mls @ 125 mls/ hr IV ASDIRECTED [facility] Stop: 12/26/18 02:23 Last Admin: 12/25/18 19:55 Dose: 125 mls/hr Ketorolac Tromethamine (Toradol) 30 mg IVPUSH Q6H [facility] Stop: 12/26/18 06:31 Last Admin: 12/25/18 23:37 Dose: Not Given Ketorolac Tromethamine (Toradol) 30 mg IVPUSH Q6H [facility] Stop: 12/26/18 10:31 Last Admin: 12/26/18 10:32 Dose: 30 mg Metoclopramide HCl (Reglan) 10 mg IVPUSH ONETIME ONE Stop: 12/25/18 14:41 Last Admin: 12/25/18 15:24 Dose: Not Given Nalbuphine HCl (Nubain) 10 mg IVPUSH Q2H PRN PRN Reason: pain Sodium Chloride (Saline Flush) 10 ml FLUSH ASDIRECTED PRN PRN Reason: Keep Vein Open - Exam General: Reports: Alert, Oriented HEENT: Reports: Pupils Equal, Pupils Reactive, EOMI, Mucous Membr. Moist/[place] Neck: Reports: Supple Lungs: Reports: Clear to Auscultation, Normal Respiratory Effort Cardiovascular: Reports: Regular Rate, Regular Rhythm GI/Abdominal Exam: Normal Bowel Sounds, Soft, Non-Tender, No Organomegaly, No Distention, No Abnormal Bruit, No Mass, Pelvis Stable Rectal (Female) Exam: Normal Exam, Normal Rectal Tone Back Exam: Reports: Normal Inspection, Full Range of Motion Extremities: Normal Inspection, Normal Range of Motion, Non-Tender, No Pedal Edema, Normal Capillary Refill Skin: Reports: Warm, Dry, Intact Wound/Incisions: Reports: Healing Well Neurological: Reports: No New Focal Deficit Psy/Mental Status: Reports: Alert, Normal Affect, Normal Mood
[2018-12-27 15:55] VITALS: BP 116/59
== END 2018-12-27 16:51 | disposition critical access hospital (66) | DRG 540 ==
LOC: JD.OB 13:08 → JD.OBCHECK 13:08 → JD.OB 15:23
PROVIDERS: ADMIT Obstetrics & Gynecology; ATTEND Obstetrics & Gynecology
PROC: 10D00Z1 Extraction of Products of Conception, Low, Open Approach (ICD-10-PCS; principal; 2018-12-25)
PROC: 3E0234Z Introduction of Serum, Toxoid and Vaccine into Muscle, Percutaneous Approach (ICD-10-PCS; 2018-12-27)
DX: O34.219 Maternal care for unspecified type scar from previous cesarean delivery (principal); N85.8 Other specified noninflammatory disorders of uterus; Z3A.39 39 weeks gestation of pregnancy; Z37.0 Single live birth; Z23 Encounter for immunization
CPT/HCPCS: 36415; 59025; 84112; 85025; 86592; A9270-GY; J1885; J3490; J7042; J7120

== ENCOUNTER 2020-08-07 14:18 | Emergency (ER) | payer OTHER ==
[2020-08-07] MEDS ORDERED: Sodium Chloride 0.9% 10 ML Syringe FLUSH PRN (14:51)
--- NOTE | 2020-08-07 15:03 | EDM.PDOC ---
ED HPI GENERAL MEDICAL PROBLEM - General Chief Complaint: General Stated Complaint: COVID + DIFFICULTY BREATHING Time Seen by Provider: 08/07/20 14:27 Source of Information: Reports: Patient, RN Notes Reviewed History Limitations: Reports: No Limitations - History of Present Illness INITIAL COMMENTS - FREE TEXT/NARRATIVE: Patient is a 39-year-old female who presents to the ED for evaluation of her COVID-19 symptoms. The patient states that she is started feeling sick on 08/02/2020, so she went to the drive-through COVID testing on Monday, and was told that she was the COVID-19+ on 08/05/2020. She states that she has been fairly conscious about wearing her mask, but does not really know where she could have gotten the virus. She denies any other past medical history. She does not have a regular doctor. She states she feels all over body aches, she states she had violent chills at home. But she states most of her pain has been in her lower back. She does have a dry intermittent cough. O2 sats are 97% on room air, she is having no visible respiratory distress at this time. Patient feels as if she is had a temperature at home, but has not actually taken her temperature as she does not have a thermometer. She has been using Tylenol pretty much [id number] the last few days, but did not take any this morning. Her temperature at time of triage is 101 F. Patient states that the past few nights, she has had an immense amount of sweat worse running down her face. She is not had any other sick contacts known to her. She states that her children are with her mom when she developed some symptoms. She is having some nausea but no vomiting or diarrhea. She has not lost her sense of smell or taste at this time. She denies any chance of , and states she is currently on her menses. 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: Endocrine/Metabolic History: Reports: Other (See Below) Other Endocrine/Metabolic History: ?hashimotos thyroid - Infectious Disease History Infectious Disease History: Reports: Novel Coronavirus (08/05/2020) - Past Surgical History Female Surgical History: Reports: Section Social & Family History - Family History Family Medical History: Noncontributory - Tobacco Use Smoking Status *Q: Never Smoker - Caffeine Use Caffeine Use: Reports: Energy Drinks, Soda - Recreational Drug Use Recreational Drug Use: No ED ROS GENERAL - Review of Systems Review Of Systems: Comprehensive ROS is negative, except as noted in HPI. ED EXAM, GENERAL - Physical Exam Exam: See Below Exam Limited By: No Limitations General Appearance: Alert, WD/WN, No Apparent Distress Throat/Mouth: Normal Inspection, Normal Lips, Normal Teeth, Normal Gums, Normal Oropharynx, Normal Voice, No Airway Compromise Head: Atraumatic, Normocephalic Neck: Normal Inspection Respiratory/Chest: No Respiratory Distress, Lungs Clear, Normal Breath Sounds, No Accessory Muscle Use, Chest Non-Tender Cardiovascular: Normal Peripheral Pulses, Regular Rate, Rhythm, No Murmur Peripheral Pulses: 2+: Radial (L), Radial (R) Extremities: Normal Inspection, Normal Capillary Refill Neurological: Alert, Oriented, Normal Cognition, No Motor/Sensory Deficits Psychiatric: Normal Affect, Normal Mood Skin Exam: Warm, Dry, Intact, Normal Color, No Rash EKG INTERPRETATION EKG Date: 08/07/20 Time: 15:30 Rhythm: NSR (sinus tach) Rate (Beats/Min): 127 [place]: Normal P-Wave: Present QRS: Normal ST-T: Normal QT: Normal Comparison: NA - No Prior EKG EKG Interpretation Comments: No obvious ischemia or acute ST changes noted, reviewed by myself and Dr. Trinidad. Course - Vital Signs Last Recorded V/S: Last Vital Signs Temp 100.0 F 08/07/20 17:20 Pulse 125 H 08/07/20 17:20 Resp 18 08/07/20 17:20 BP 104/63 08/07/20 17:20 Pulse Ox 95 08/07/20 17:20 - Orders/Labs/Meds Orders: Active Orders 24 hr Category Date Time Status EKG Documentation Completion [RC] STAT Care 08/07/20 14:51 Active Peripheral IV Care [RC] . DIRECTED Care 08/07/20 14:51 Active Sodium Chloride 0.9% [Normal Saline] 100 ml Med 08/07/20 16:30 Active IV ASDIRECTED Sodium Chloride 0.9% [Saline Flush] Med 08/07/20 14:51 Active 10 ml FLUSH ASDIRECTED PRN Peripheral IV Insertion Adult [OM.PC] Routine Oth 08/07/20 14:51 Ordered Medication Orders Sodium Chloride (Normal Saline) 100 mls @ 60 mls/hr IV ASDIRECTED ARMANDO Last Admin: 08/07/20 17:03 Dose: 60 mls/hr Documented by: GEOVANNY Sodium Chloride (Saline Flush) 10 ml FLUSH ASDIRECTED PRN PRN Reason: Keep Vein Open Last Admin: 08/07/20 15:26 Dose: 10 ml Documented by: MASSIEL Labs: Laboratory Tests 08/07/20 08/07/20 08/07/20 Range/Units 15:20 15:20 15:20 WBC 1.41 L* (3.98-10.04) K/mm3 RBC 4.54 (3.98-5.22) M/mm3 Hgb 14.0 (11.2-15.7) gm/dl Hct 41.1 (34.1-44.9) % MCV 90.5 (79.4-94.8) fl MCH 30.8 (25.6-32.2) pg MCHC 34.1 (32.2-35.5) g/dl RDW Std Deviation 40.3 (36.4-46.3) fL Plt Count 148 L D (182-369) K/mm3 MPV 10.7 (9.4-12.3) fl Neutrophils % (Manual) 64 H (40-60) % Band Neutrophils % 4 (0-10) % Lymphocytes % (Manual) 27 (20-40) % Atypical Lymphs % 0 % Monocytes % (Manual) 5 (2-10) % Eosinophils % (Manual) 0 L (0.7-5.8) % Basophils % (Manual) 0 L (0.1-1.2) Platelet Estimate Decreased Plt Morphology Comment See note RBC Morph Comment Normal PT 10.5 (9.7-11.7) SECONDS INR 0.98 APTT 31 (22-31) SECONDS D-Dimer, Quantitative 1.14 H (0.19-0.50) mg/L Sodium (136-145) mEq/L Potassium (3.5-5.1) mEq/L Chloride (98-107) mEq/L Carbon Dioxide (21-32) mEq/L Anion Gap (5-15) BUN (7-18) mg/dL Creatinine (0.55-1.02) mg/dL Est Cr Clr Drug Dosing mL/min Estimated GFR (MDRD) (>60) mL/min BUN/Creatinine Ratio (14-18) Glucose (74-106) mg/dL Lactic Acid (0.4-2.0) mmol/L Calcium (8.5-10.1) mg/dL Magnesium (1.8-2.4) mg/dl Ferritin (8-252) ng/ml Total Bilirubin (0.2-1.0) mg/dL AST (15-37) U/L ALT (14-59) U/L Alkaline Phosphatase (46-116) U/L Lactate Dehydrogenase (81-234) U/L Troponin I (0.00-0.056) ng/mL C-Reactive Protein 12.7 H* (<1.0) mg/dL Total Protein (6.4-8.2) g/dl Albumin (3.4-5.0) g/dl Globulin gm/dL Albumin/Globulin Ratio (1-2) 08/07/20 08/07/20 08/07/20 Range/Units 15:20 15:20 15:20 WBC (3.98-10.04) K/mm3 RBC (3.98-5.22) M/mm3 Hgb (11.2-15.7) gm/dl Hct (34.1-44.9) % MCV (79.4-94.8) fl MCH (25.6-32.2) pg MCHC (32.2-35.5) g/dl RDW Std Deviation (36.4-46.3) fL Plt Count (182-369) K/mm3 MPV (9.4-12.3) fl Neutrophils % (Manual) (40-60) % Band Neutrophils % (0-10) % Lymphocytes % (Manual) (20-40) % Atypical Lymphs % % Monocytes % (Manual) (2-10) % Eosinophils % (Manual) (0.7-5.8) % Basophils % (Manual) (0.1-1.2) Platelet Estimate Plt Morphology Comment RBC Morph Comment PT (9.7-11.7) SECONDS INR APTT (22-31) SECONDS D-Dimer, Quantitative (0.19-0.50) mg/L Sodium 134 L (136-145) mEq/L Potassium 3.5 (3.5-5.1) mEq/L Chloride 97 L (98-107) mEq/L Carbon Dioxide 26 (21-32) mEq/L Anion Gap 14.5 (5-15) BUN 7 (7-18) mg/dL Creatinine 0.9 (0.55-1.02) mg/dL Est Cr Clr Drug Dosing 67.03 mL/min Estimated GFR (MDRD) > 60 (>60) mL/min BUN/Creatinine Ratio 7.8 L (14-18) Glucose 120 H (74-106) mg/dL Lactic Acid 1.5 (0.4-2.0) mmol/L Calcium 8.8 (8.5-10.1) mg/dL Magnesium 1.9 (1.8-2.4) mg/dl Ferritin 535 H (8-252) ng/ml Total Bilirubin 0.3 (0.2-1.0) mg/dL AST 27 (15-37) U/L ALT 21 (14-59) U/L Alkaline Phosphatase 64 (46-116) U/L Lactate Dehydrogenase 345 H (81-234) U/L Troponin I < 0.017 (0.00-0.056) ng/mL C-Reactive Protein (<1.0) mg/dL Total Protein 7.2 (6.4-8.2) g/dl Albumin 3.2 L (3.4-5.0) g/dl Globulin 4.0 gm/dL Albumin/Globulin Ratio 0.8 L (1-2) Meds: Medications Generic Name Dose Route Start Last Admin Trade Name Freq PRN Reason Stop Dose Admin Sodium Chloride 100 mls @ 60 mls/hr 08/07/20 16:30 08/07/20 17:03 Normal Saline IV 60 mls/hr ASDIRECTED ARMANDO Administration Sodium Chloride 10 ml 08/07/20 14:51 08/07/20 15:26 Saline Flush FLUSH 10 ml ASDIRECTED PRN Administration Keep Vein Open Discontinued Medications Generic Name Dose Route Start Last Admin Trade Name Freq PRN Reason Stop Dose Admin Acetaminophen 650 mg 08/07/20 15:04 08/07/20 15:26 Tylenol PO 08/07/20 15:05 650 mg NOW ONE Administration Acetaminophen Confirm 08/07/20 15:32 08/07/20 15:54 Tylenol Administered 08/07/20 15:33 Not Given Dose 325 mg .ROUTE .STK-MED ONE Iopamidol 100 ml 08/07/20 16:22 08/07/20 17:03 Isovue-370 (76%) IVPUSH 08/07/20 16:23 100 ml ONETIME ONE Administration Sodium Chloride 10 ml 08/07/20 16:22 08/07/20 17:03 Saline Flush FLUSH 08/07/20 16:23 10 ml ONETIME ONE Administration - Re-Assessments/Exams Free Text/Narrative Re-Assessment/Exam: 08/07/20 15:04 Patient presents to the ED for ongoing COVID-19 symptoms. Labs will be obtained, as the patient has not had a clinical evaluation of her coronavirus at this time. Chest x-ray also be taken for baseline. I do highly suspect that she will be well enough to go home and monitor her symptoms at home. 08/07/20 16:00 Patient's white blood cell count is decreased at 1.41. Which would indicate that she is indeed suffering from a viral illness. Labs are still pending. 08/07/20 16:24 The patient's d-dimer is elevated at 1.14, she will get a CTA of her chest to rule out PE at this time. 08/07/20 16:35 X-ray was done, and has been read as patchy areas of increased density on both sides of the chest. Viral pneumonia should be in the differential. 08/07/20 18:[address] demonstrates no sign of a pulmonary embolus, it does however show patchy areas of increased density within the upper lungs and lower lungs compatible with viral pneumonia. I did go over the patient's labs and radiology reports, and she does feel little bit better to go home, she was hungry and did eat some soup. We will get the patient discharged home. O2 sats are still good at 95% on room air. Patient is in no obvious respiratory distress at time of discharge. Departure - Departure Time of Disposition: 18:07 Disposition: Home, Self-Care 01 Condition: Fair Clinical Impression: COVID-19 - Discharge Information *PRESCRIPTION DRUG MONITORING PROGRAM REVIEWED*: No *COPY OF PRESCRIPTION DRUG MONITORING REPORT IN PATIENT JANELLE: No Instructions: COVID-19: How to Protect Yourself and Others - [facility], COVID-19 F requently Asked Questions Forms: ED Department Discharge Additional Instructions: You were seen in the ER today for ongoing and/or worsening respiratory symptoms. Your chest x-ray showed signs of a mild viral pneumonia at this time. Your oxygen levels were great at 96-97% on room air. We ask that you self-quarantine and limit your exposure to others as much as possible to help mitigate the spread of the virus. Please try to increase your oral fluid intake, and eat multiple small meals throughout the day, to keep yourself healthy. You may take 500 mg Tylenol every hours 6 hours for pain/fever relief. Do not exceed 4000 mg Tylenol in a 24-hour time span. However, running a fever is your body's natural response to illness, and it allows the body to develop antibodies to disease, we are recommending trying to limit the use of Tylenol as much as possible to allow your body's natural immune response. You had a chest CT, chest x-ray, and labs done at today's visit for baseline studies, to monitor your disease course. Your labs did reflect a viral illness in nature. Your CT did not show any sign of pulmonary embolus, but was again consistent with a viral pneumonia. Please keep monitoring your O2 saturations at home, if your oxygen level should dip below 90% on room air, this would be cause for concern to return to the ER f or further management and possible hospitalization. You can obtain a pulse oximeter at any retail place like [employer], [employer] , or [employer]. Sepsis Event Note (ED) - Evaluation Sepsis Screening Result: Possible Sepsis Risk - Focused Exam Vital Signs: Vital Signs Temp Pulse Resp BP Pulse Ox 08/07/20 17:20 100.0 F 125 H 18 104/63 95 08/07/20 14:27 101 F H 130 H 24 H 125/59 L 97 - My Orders Last 24 Hours: My Active Orders 08/07/20 14:51 EKG Documentation Completion [RC] STAT Peripheral IV Care [RC] . DIRECTED Sodium Chloride 0.9% [Saline Flush] 10 ml FLUSH ASDIRECTED PRN Peripheral IV Insertion Adult [OM.PC] Routine 08/07/20 16:30 Sodium Chloride 0.9% [Normal Saline] 100 ml IV ASDIRECTED - Assessment/Plan Last 24 Hours: My Active Orders 08/07/20 14:51 EKG Documentation Completion [RC] STAT Peripheral IV Care [RC] . DIRECTED Sodium Chloride 0.9% [Saline Flush] 10 ml FLUSH ASDIRECTED PRN Peripheral IV Insertion Adult [OM.PC] Routine 08/07/20 16:30 Sodium Chloride 0.9% [Normal Saline] 100 ml IV ASDIRECTED
[2020-08-07] MEDS ORDERED: Acetaminophen 325 MG Tab PO ONE (15:04)
[2020-08-07] MEDS ORDERED: Acetaminophen 325 MG Tab ONE (15:32)
[2020-08-07] MEDS ORDERED: Iopamidol 755 Mg/ML 100 ML Bottle IVPUSH ONE (16:22)
[2020-08-07] MEDS ORDERED: Sodium Chloride 0.9% 10 ML Syringe FLUSH ONE (16:22)
--- NOTE | 2020-08-07 16:26 | CR ---
Chest: Portable view of the chest was obtained. Comparison: Prior chest x-ray of 07/25/20. Patchy areas of increased density within both sides of the chest. Heart size and mediastinum are normal. Bony structures are grossly intact. Impression: 1. Patchy areas of increased density on both sides of the chest. This could represent multifocal bacterial pneumonia although given the multifocal nature, viral pneumonia needs to be be ruled out. Diagnostic code #5 This report was dictated in MDT
[2020-08-07] MEDS ORDERED: Sodium Chloride 0.9% 100 ML IV SCH (16:30)
--- NOTE | 2020-08-07 17:54 | CT ---
CT chest Technique: Multiple axial sections through the chest were obtained. Study performed as a pulmonary angiogram protocol. Intravenous contrast was therefore utilized. Findings: Pulmonary arteries are well opacified. No filling defects are seen to indicate pulmonary embolism. The aorta shows no aneurysm. Mediastinum shows several small lymph nodes believed to be normal. Small axillary lymph nodes seen which are felt to be within normal limits. Visualized upper abdominal structures show nothing acute. Patchy areas of increased density are seen within the left upper lung as well as right upper lung as well as within both lung bases. No pleural effusions are seen. Bone window settings were reviewed which shows no acute osseous finding. Impression: 1. No findings of pulmonary embolism. 2. Patchy areas of increased density within both upper lungs and lower lungs compatible with pneumonia. Given patient has a positive Covid 19 test, findings most likely represent viral pneumonia. 3. No additional abnormality is appreciated. Diagnostic code #5 This report was dictated in MDT
[2020-08-07 18:38] VITALS: BP 104/58; PULSE 116
== END 2020-08-07 18:51 | disposition home or self-care (01) ==
LOC: JD.ED 14:18
DX: U07.1 COVID-19 (principal)
CPT/HCPCS: 36415; 71045; 71275; 80053; 82728; 83605; 83615; 83735; 84484; 85007; 85027; 85379; 85610; 85730; 86140; 93005; 96360; 96361; 99284; A9270; J7050; Q9967; 93010; 99283

== ENCOUNTER 2021-06-09 05:35 | Inpatient (IN) | payer BC, OTHER ==
--- NOTE | 2021-06-08 20:33 | PCM.PREANE ---
Preanesthetic Assessment - Procedure Proposed Procedure: - Anesthesia/Transfusion/Family Hx Anesthesia History: Prior Anesthesia Reaction Type of Anesthesia Reaction: Excessive Shivering (Patient has a history of excessive shivering/shaking that started prior to spinal placement (a previous ) and continued following surgery) Other Type of Anesthesia Reaction Comment: excessive shaking Family History of Anesthesia Reaction: Yes (Patient states that family is sensitive to anesthesia) Transfusion History: No Prior Transfusion(s) Intubation History: Unknown - Review of Systems General: No Symptoms Pulmonary: No Symptoms Cardiovascular: Other (Baseline HR 110) Gastrointestinal: Nausea Neurological: No Symptoms Other: Reports: Easy Bleeding - Physical Assessment NPO Status Date: 06/08/21 NPO Status Time: 22:00 Vital Signs: HR 114 Height: 1.57 m Weight: 87.5 kg ASA Class: 2 Mental Status: Alert & Oriented x3 Airway Class: Mallampati = 2 Dentition: Reports: Normal Dentition Thyro-Mental Finger Breadths: 3 Mouth Opening Finger Breadths: 3 ROM/Head Extension: Full Lungs: Clear to Auscultation, Normal Respiratory Effort Cardiovascular: Regular Rate, Regular Rhythm - Imaging/EKG Impressions: EKG 08/07/20: ST HR [address] changes or ischemia Chest x-ray 08/07/20: Patchy areas of increased density on both sides of chest. Multifocal bacterial pneumonia or viral pneumonia needs to be ruled out - Allergies Allergies/Adverse Reactions: Allergies Allergy/AdvReac Type Severity Reaction Status Date / Time No Known Allergies Allergy Verified 06/09/21 06:33 - Blood Blood Available: Yes Product(s) Available: PRBC - Anesthesia Plan Pre-Op Medication Ordered: Antacids (Bicitra; will hold metoclopramide due to questionable extrapyramidal symptoms following a previous ) - Acknowledgements Anesthesia Type Planned: Spinal Pt an Appropriate Candidate for the Planned Anesthesia: Yes Alternatives and Risks of Anesthesia Discussed w Pt/Guardian: Yes Pt/Guardian Understands and Agrees with Anesthesia Plan: Yes PreAnesthesia Questionnaire - Past Health History Medical/Surgical History: Denies Medical/Surgical History Other Cardiovascular History: History of tachycardia Gastrointestinal History: Reports: 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 hypothyroidism - Infectious Disease History Infectious Disease History: Reports: Novel Coronavirus (08/05/2020) - Past Surgical History Female Surgical History: Reports: Section - SUBSTANCE USE Tobacco Use Status *Q: Never Tobacco User Tobacco Use Within Last Twelve Months: No Second Hand Smoke Exposure: No Days Per Week of Alcohol Use: 0 Number of Drinks Per Day: 0 Total Drinks Per Week: 0 Recreational Drug Use History: No - HOME MEDS Home Medications: Home Meds Fluticasone/Salmeterol [Advair HFA 115-21 MCG] 2 puff INH BID #1 inhaler 08/07/20 [Rx] Lysine 1,000 mg PO DAILY 08/07/20 [History]
[~2021-06-09 05:35] MED LIST: Lidocaine 1% 10 ML MDV ONE; Oxytocin/Lactated Ringers 10 UNIT/1,000 ML BAG IV SCH; Sodium Chloride 0.9% 10 ML Syringe FLUSH PRN
[2021-06-09] MEDS ORDERED: Lactated Ringers 1,000 ML IV SCH (06:00)
[2021-06-09] MEDS ORDERED: Citric Acid/Sodium Citrate Solution 30 ML Cup ONE (06:28)
[2021-06-09] MEDS ORDERED: Lactated Ringers 1,000 ML ONE (06:28)
[2021-06-09] MEDS ORDERED: Metoclopramide 10 MG/2 ML SDV IVPUSH ONE (06:30)
[2021-06-09] MEDS ORDERED: Citric Acid/Sodium Citrate Solution 30 ML Cup PO ONE (06:30)
[2021-06-09] MEDS ORDERED: ceFAZolin 1 GM Vial ONE (06:45)
[2021-06-09] MEDS ORDERED: Ketorolac 30 MG/ML SDV ONE (06:45)
[2021-06-09] MEDS ORDERED: Ondansetron 4 MG/2 ML SDV ONE (06:45)
[2021-06-09] MEDS ORDERED: Oxytocin 10 Units/1 ML SDV ONE (06:45)
[2021-06-09] MEDS ORDERED: Morphine PF 10 MG/10 ML SDV ONE (06:50)
[2021-06-09] MEDS ORDERED: Bupivacaine 0.5% 30 ML SDV ONE (07:07)
[2021-06-09] MEDS ORDERED: ceFAZolin 2 GM in Premix Bag 1 BAG IV ONE (07:30)
[2021-06-09] MEDS ORDERED: ePHEDrine 50 MG/ML SDV ONE (09:09)
[2021-06-09] MEDS ORDERED: diphenhydrAMINE 50 MG/ML SDV IVPUSH PRN ×2 (09:45→11:06)
[2021-06-09] MEDS ORDERED: fentaNYL 100 MCG/2 ML SDV IVPUSH PRN (09:45)
[2021-06-09] MEDS ORDERED: Ondansetron 4 MG/2 ML SDV IVPUSH PRN (09:45)
[2021-06-09] MEDS ORDERED: Meperidine 50 MG/ML Vial IVPUSH PRN (09:45)
--- NOTE | 2021-06-09 09:45 | PCM.POSTAN ---
POST ANESTHESIA ASSESSMENT - MENTAL STATUS Mental Status: Alert, Oriented - VITAL SIGNS Vital Signs: Last Vital Signs Temp 96.8 F L 06/09/21 05:55 Pulse 127 H 06/09/21 06:00 Resp BP 118/84 06/09/21 06:00 Pulse Ox 95 06/09/21 06:00 PACU vital signs: 114/97 HR 77 RR 18 98.4 99% RA - RESPIRATORY Respiratory Status: Respiratory Rate WNL - CARDIOVASCULAR CV Status: Pulse Rate WNL, Blood Pressure Stable - GASTROINTESTINAL GI Status: No Symptoms - PAIN Pain Score: 0 - POST OP HYDRATION Hydration Status: Adequate & Stable (No questions or concerns at this time)
--- NOTE | 2021-06-09 09:53 | PCM.OPNOTE ---
- General Post-Op/Procedure Note Date of Surgery/Procedure: 06/09/21 Operative Procedure(s): repeat section Findings: viable male, weight 8#6oz, 06/28 at 0910, thin lower uterine segment Pre Op Diagnosis: prior , desires repeat Post-Op Diagnosis: Same Anesthesia Technique: Spinal Primary Surgeon: Maritza Griffith Anesthesia Provider: Joselyn Kidd Turkey Pinner: Lexi Greenwood Fluid Replacement, Intraop: 1,500 Output, Urine Amount: 100 EBL in mLs: 800 Complications: None Condition: Good Free Text/Narrative:: The patient was taken to the operating room where spinal anesthesia was dosed to surgical levels without difficulty. The patient was prepped and draped in the usual sterile fashion in the dorsal supine position with a leftward tilt. A Pfannenstiel skin incision was made with the scalpel and carried through to the underlying layer of fascia. The fascia was incised in the midline and extended laterally using Dee scissors. Alessio clamps were used to elevate the superior aspect of the fascial incision, which was elevated, and the underlying rectus muscles were dissected off bluntly and using Dee scissors. Attention was then turned to the inferior aspect of the fascial incision, which in similar fashion was grasped with Alessio clamps, elevated, and the underlying rectus muscles were dissected off bluntly and using the dee. The rectus muscles were dissected in the midline. The peritoneum was entered bluntly; this incision was extended superiorly and inferiorly with good visualization of the bladder. The bladder blade was inserted. The vesicouterine peritoneum was identified and entered sharply using Metzenbaum scissors. This incision was extended laterally and the bladder flap was created digitally. Thin lower uterine segment noted. The bladder blade was reinserted. The lower uterine segment was incised in a transverse fashion using the scalpel and with digital traction. Clear fluid was noted. The was subsequently delivered by flexing the head to the incision. Body and shoulders followed without difficulty. The cord was clamped and cut. The was subsequently handed to the awaiting compliance intern whose presence had been requested.. The placenta was delivered spontaneously intact with a three-vessel cord noted. The uterus was exteriorized and cleared of all clots and debris. The uterine incision was repaired in 2 layers using 0 monocryl. Hemostasis was visualized. Hemostasis was visualized bilaterally. The uterus was returned to the abdomen. The uterine incision was reexamined and it was noted to be hemostatic. The pelvis was copiously irrigated. The fascia was closed with 1 PDS suture, and the skin was closed with 3-0 monocryl. Sponge, lap, and instrument counts were correct x2. The patient was stable at the completion of the procedure and was subsequently transferred to the recovery room in stable condition.
[2021-06-09] MEDS ORDERED: Dextrose 5%-Lactated Ringers 1,000 ML IV SCH (11:06)
[2021-06-09] MEDS ORDERED: Naloxone 0.4 MG/ML SDV IVPUSH PRN (11:06)
[2021-06-09] MEDS ORDERED: ePHEDrine 50 MG/ML SDV IVPUSH PRN (11:06)
[2021-06-09] MEDS ORDERED: Acetaminophen/oxyCODONE 325-5 MG Tab PO PRN (11:06)
[2021-06-09] MEDS: Ketorolac 30 MG/ML SDV IVPUSH SCH ×2 (12:56→18:56)
[2021-06-09] MEDS ORDERED: Sodium Chloride 0.9% 1,000 ML IV ONE (15:01)
[2021-06-10] MEDS: Ketorolac 30 MG/ML SDV IVPUSH SCH (02:34)
[2021-06-10] MEDS: Acetaminophen/oxyCODONE 325-5 MG Tab PO PRN ×2 (07:57→21:57)
--- NOTE | 2021-06-10 08:19 | PCM48HPAN ---
Post Anesthesia Note - EVALUATION WITHIN 48HRS OF ANESTHETIC Vital Signs in Normal Range: Yes Patient Participated in Evaluation: Yes Respiratory Function Stable: Yes Airway Patent: Yes Cardiovascular Function Stable: Yes Hydration Status Stable: Yes Pain Control Satisfactory: Yes Nausea and Vomiting Control Satisfactory: Yes Mental Status Recovered: Yes Vital Signs: Last Vital Signs Temp 36.1 C 06/10/21 02:43 Pulse 102 H 06/10/21 04:25 Resp 16 06/10/21 07:00 BP 118/54 L 06/10/21 02:43 Pulse Ox 96 06/10/21 07:00 - COMMENTS/OBSERVATIONS Free Text/Narrative:: no anesthesia complications noted
--- NOTE | 2021-06-10 09:19 | PCM.SN.2 ---
- Free Text/Narrative Note: Post Operative Progress Note POD #1 Subjective: Doing well overall. Ambulating without difficulty. Lochia minimal. Voiding without difficulty. Not passing flatus or had bowel movement at this time. Tolerating regular diet without nausea or vomiting. Pain controlled with oral medications. Breast-feeding with minimal difficulty. She reports that she has been having a headache this morning that has been lasting for about 2 hours. She states that it feels similar to the headaches she has had after her COVID-19 infection and also during . It is very mild in intensity. Objective: Vitals: Vital Signs - 24 hr 06/09/21 06/09/21 06/09/21 09:37 09:50 10:05 Temperature Temperature [ 36.9 C 36.4 C 36.7 C Temporal] Pulse, Peripheral Pulse, 77 81 83 Peripheral [ Right Pulse Oximetry] Respiratory 18 15 13 Rate Blood Pressure Blood Pressure 114/97 H 101/60 106/57 L [Left Upper Arm ] O2 Sat by Pulse 99 97 98 Oximetry 06/09/21 06/09/21 06/09/21 10:20 10:35 10:48 Temperature 36.1 C Temperature [ 36.6 C Temporal] Pulse, 89 Peripheral Pulse, 80 84 Peripheral [ Right Pulse Oximetry] Respiratory 12 14 16 Rate Blood Pressure 115/64 Blood Pressure 111/63 103/64 [Left Upper Arm ] O2 Sat by Pulse 96 96 88 L Oximetry 06/09/21 06/09/21 06/09/21 11:22 11:55 12:56 Temperature 36.3 C 36.1 C 36.2 C Temperature [ Temporal] Pulse, 88 105 H 102 H Peripheral Pulse, Peripheral [ Right Pulse Oximetry] Respiratory 16 12 12 Rate Blood Pressure 114/74 104/55 L 101/60 Blood Pressure [Left Upper Arm ] O2 Sat by Pulse 98 98 99 Oximetry 06/09/21 06/09/21 06/09/21 13:47 14:28 15:21 Temperature 36.2 C Temperature [ Temporal] Pulse, 99 91 96 Peripheral Pulse, Peripheral [ Right Pulse Oximetry] Respiratory 16 12 12 Rate Blood Pressure 103/67 Blood Pressure [Left Upper Arm ] O2 Sat by Pulse 97 99 98 Oximetry 06/09/21 06/09/21 06/09/21 15:54 17:37 17:59 Temperature 36.3 C Temperature [ Temporal] Pulse, 85 91 97 Peripheral Pulse, Peripheral [ Right Pulse Oximetry] Respiratory 16 14 16 Rate Blood Pressure 110/66 Blood Pressure [Left Upper Arm ] O2 Sat by Pulse 100 100 98 Oximetry 06/09/21 06/09/21 06/09/21 18:53 20:00 20:02 Temperature 35.8 C L Temperature [ Temporal] Pulse, 95 95 Peripheral Pulse, Peripheral [ Right Pulse Oximetry] Respiratory 16 16 16 Rate Blood Pressure 109/54 L Blood Pressure [Left Upper Arm ] O2 Sat by Pulse 97 96 96 Oximetry 06/10/21 06/10/21 06/10/21 02:43 03:00 03:49 Temperature 36.1 C Temperature [ Temporal] Pulse, 94 108 H Peripheral Pulse, Peripheral [ Right Pulse Oximetry] Respiratory 14 16 Rate Blood Pressure 118/54 L Blood Pressure [Left Upper Arm ] O2 Sat by Pulse 96 100 97 Oximetry Physical Exam General: Alert and oriented, no acute distress Lungs: Clear to auscultation bilaterally Heart: Regular rate and rhythm Abdomen: Soft, minimal appropriate tenderness, non-distended, fundus midline, nontender and at the umbilicus Incision: Clean, dry and intact, no erythema, bleeding or drainage with Steri- Strips in place Extremities: Trace edema in bilateral lower extremities to mid shins, no calf tenderness bilaterally Labs: Laboratory Results - last 24 hr 06/09/21 06/10/21 Range/Units 05:59 05:03 WBC 6.50 (3.98-10.04) K/mm3 RBC 3.27 L (3.98-5.22) M/mm3 Hgb 10.1 L D (11.2-15.7) gm/dl Hct 32.0 L (34.1-44.9) % MCV 97.9 H (79.4-94.8) fl MCH 30.9 (25.6-32.2) pg MCHC 31.6 L (32.2-35.5) g/dl RDW Std Deviation 48.5 H (36.4-46.3) fL Plt Count 150 L (182-369) K/mm3 MPV 11.1 (9.4-12.3) fl Neut % (Auto) 78.6 H (34.0-71.1) % Lymph % (Auto) 14.8 L (19.3-51.7) % Johnston % (Auto) 4.9 (4.7-12.5) % Eos % (Auto) 1.5 (0.7-5.8) Baso % (Auto) 0.0 L (0.1-1.2) % Neut # (Auto) 5.11 (1.56-6.13) K/mm3 Lymph # (Auto) 0.96 L (1.18-3.74) K/mm3 Johnston # (Auto) 0.32 (0.24-0.36) K/mm3 Eos # (Auto) 0.10 (0.04-0.36) K/mm3 Baso # (Auto) 0.00 L (0.01-0.08) K/mm3 RPR Non-reactive (NONREACTIVE) ASSESSMENT: 40-year-old female -0-0-4 s/p repeat section POD #1 for history of section, complicated by COVID-19 infection in July 2020 PLAN: Doing well Breast-feeding with minimal difficulty. Assist as needed Incision healing well. Continue to keep clean and dry. Lochia minimal. Continue to monitor for appropriate lochia. Continue routine post-operative care Continue to monitor her headache to see if it resolves with medications. Suspect that this may be lingering effects from the COVID-19 infection. Anticipate discharge home tomorrow if infant is stable for discharge at that time Jerald Sheridan MD 9:17 AM 06/10/2021
[2021-06-10] MEDS: Ibuprofen 600 MG Tab PO PRN ×2 (13:09→19:04)
[2021-06-10] MEDS: Docusate Sodium 100 MG Cap PO SCH ×2 (16:32→21:59)
[2021-06-10] MEDS ORDERED: Simethicone 80 MG Tab.Chew PO PRN (21:19)
[2021-06-11] MEDS: Acetaminophen/oxyCODONE 325-5 MG Tab PO PRN (06:10)
--- NOTE | 2021-06-11 10:05 | PCM.SN.2 ---
- Free Text/Narrative Note: /postoperative day #2 note: Patient is doing well in the period. Minimal lochia, voiding well, ambulated without problems. Nursing without concerns. Patient is afebrile, vital signs are stable Abdomen is flat, soft, uterus is below the umbilicus and is firm and nontender. Incision is intact, Steri-Strips in place. Dry with no evidence of seroma, hematoma or infection. Legs are nontender. Assessment: recovery going well. Patient is nursing without problems. Plan: Routine care. Patient be discharged home within the next 24 hours.
[2021-06-11] MEDS: Ibuprofen 600 MG Tab PO PRN ×2 (11:10→17:03)
[2021-06-11] MEDS: Docusate Sodium 100 MG Cap PO SCH ×2 (11:11→20:30)
[2021-06-11] MEDS ORDERED: Acetaminophen 325 MG Tab PO PRN (15:52)
[2021-06-12] MEDS: Ibuprofen 600 MG Tab PO PRN ×2 (02:13→11:06)
[2021-06-12 08:47] VITALS: BP 101/65; PULSE 72
[2021-06-12] MEDS: Docusate Sodium 100 MG Cap PO SCH (08:59)
--- NOTE | 2021-06-12 09:53 | PCM.DCSUM1 ---
Discharge Summary - Hospital Course Free Text/Narrative:: Jocelyn is a 40-year-old multigravida female admitted on 06/09/2020 for elective repeat section. See admission history and physical for details. She underwent a repeat section under spinal anesthesia. She delivered a viable 8 pound 6 ounce male infant with Apgars of 8 and 9 at 0910 hrs. on 06/09/2021. Noted at the time of surgery was a very thin lower uterine segment. Post operatively patient has done very well. She is ambulating well, is nursing without problems with the exception that she had one episode of small amount of blood when she pumped from the left breast. This is totally asymptomatic. She is asked to monitor this as etiology and is not certain. She has a small crack but she does not think that this is where this arose from. Patient is desiring discharge home. Condition: Good Diagnosis: Stroke: No - Discharge Data Discharge Date: 06/12/21 Discharge Disposition: Home, Self-Care 01 Condition: Good - Referral to Home Health Primary Care Physician: Maritza Griffith MD - Discharge Diagnosis/Problem(s) (1) 39 weeks gestation of SNOMED Code(s): 81999394 ICD Code: Z3A.39 - 39 WEEKS GESTATION OF Status: Acute Current Visit: Yes (2) Previous section SNOMED Code(s): 362437315 ICD Code: Z98.891 - HISTORY OF UTERINE SCAR FROM PREVIOUS SURGERY Status: Acute Current Visit: Yes - Patient Summary/Data Operative Procedure(s) Performed: repeat section - Patient Instructions Diet: Usual Diet as Tolerated (Nursing diet with increased calories and calcium as recommended) Activity: As Tolerated (No lifting greater than 15 pounds for the next week. Patient may take a shower. No driving a car x7 to 10 days.) Driving: Do Not Drive Showering/Bathing: May Shower Wound/Incision Care: Keep Operative Site/Wound Site Clean and Dry Notify Provider of: Fever, Increased Pain, Swelling and Redness, Drainage - Discharge Plan Home Medications: Home Meds Fluticasone/Salmeterol [Advair HFA 115-21 MCG] 2 puff INH BID #1 inhaler 08/07/20 [Rx] Lysine 1,000 mg PO DAILY 08/07/20 [History] Acetaminophen [Tylenol] 650 mg PO Q6H PRN tablet 06/12/21 [Rx] Ibuprofen [Motrin] 600 mg PO Q6H PRN tablet 06/12/21 [Rx] - Discharge Summary/Plan Comment DC Time >30 min.: No - Patient Data Vitals - Most Recent: Last Vital Signs Temp 36.7 C 06/12/21 08:13 Pulse 72 06/12/21 08:13 Resp 16 06/12/21 08:13 BP 101/65 06/12/21 08:13 Pulse Ox 92 L 06/12/21 08:13 Weight - Most Recent: 87.5 kg I&O - Last 24 hours: Intake & Output 06/11/21 06/12/21 06/12/21 22:59 06:59 14:59 Intake Total 600 Balance 600 Med Orders - Current: Current Medications Acetaminophen (Acetaminophen 325 Mg Tab) 650 mg PO Q6H PRN PRN Reason: pain Last Admin: 06/11/21 20:30 Dose: 650 mg Documented by: Diphenhydramine HCl (Diphenhydramine 50 Mg/Ml Sdv) 25 mg IVPUSH Q6H PRN PRN Reason: Itching or Nausea Docusate Sodium (Docusate Sodium 100 Mg Cap) 100 mg PO BID ARMANDO Last Admin: 06/12/21 08:59 Dose: Not Given Documented by: Ephedrine Sulfate (Ephedrine 50 Mg/Ml Sdv) 5 mg IVPUSH SEECOMMENT PRN PRN Reason: Other Ibuprofen (Ibuprofen 600 Mg Tab) 600 mg PO Q6H PRN PRN Reason: mild pain or fever Last Admin: 06/12/21 02:13 Dose: 600 mg Documented by: Naloxone HCl (Naloxone 0.4 Mg/Ml Sdv) 0.1 mg IVPUSH SEECOMMENT PRN PRN Reason: Respiratory Depression Oxycodone/Acetaminophen (Acetaminophen/Oxycodone 325-5 Mg Tab) 1 tab PO Q4H PRN PRN Reason: Pain (moderate 4-6) Last Admin: 06/11/21 06:10 Dose: 1 tab Documented by: Oxycodone/Acetaminophen (Acetaminophen/Oxycodone 325-5 Mg Tab) 2 tab PO Q4H PRN PRN Reason: Pain (severe 7-10) Simethicone (Simethicone 80 Mg Tab.Chew) 80 mg PO Q6H PRN PRN Reason: Gas Last Admin: 06/10/21 21:57 Dose: 80 mg Documented by: Discontinued Medications Bupivacaine HCl (Bupivacaine 0.5% 30 Ml Sdv) Confirm Administered Dose 30 ml .ROUTE .STK-MED ONE Stop: 06/09/21 07:08 Last Admin: 06/09/21 09:06 Dose: 20 ml Documented by: Cefazolin Sodium (Cefazolin 1 Gm Vial) Confirm Administered Dose 2 gm .ROUTE .STK-MED ONE Stop: 06/09/21 06:46 Citric Acid/Sodium Citrate (Citric Acid/Sodium Citrate Solution 30 Ml Cup) 30 ml PO ONETIME ONE Stop: 06/09/21 06:31 Last Admin: 06/09/21 07:40 Dose: 30 ml Documented by: Citric Acid/Sodium Citrate (Citric Acid/Sodium Citrate Solution 30 Ml Cup) Confirm Administered Dose 30 ml .ROUTE .STK-MED ONE Stop: 06/09/21 06:29 Last Admin: 06/09/21 07:01 Dose: Not Given Documented by: Diphenhydramine HCl (Diphenhydramine 50 Mg/Ml Sdv) 25 mg IVPUSH Q6H PRN PRN Reason: Pruritis Ephedrine Sulfate (Ephedrine 50 Mg/Ml Sdv) Confirm Administered Dose 50 mg .ROUTE .STK-MED ONE Stop: 06/09/21 09:10 Fentanyl (Fentanyl 100 Mcg/2 Ml Sdv) 50 mcg IVPUSH Q5M PRN PRN Reason: Pain Cefazolin Sodium/Dextrose 2 gm (/ Premix) 50 mls @ 100 mls/hr IV ONETIME ONE Stop: 06/09/21 07:59 Oxytocin/Lactated Ringer's (Pitocin In Lr 10 Units/1,000 Ml) 10 unit in 1,000 mls @ 100 mls/hr IV ASDIRECTED ARMANDO Lactated Ringer's (Ringers, Lactated) 1,000 mls @ 125 mls/hr IV ASDIRECTED ARMANDO Last Admin: 06/09/21 07:35 Dose: 125 mls/hr Documented by: Lactated Ringer's (Ringers, Lactated) Confirm Administered Dose 1,000 mls @ as directed .ROUTE .STK-MED ONE Stop: 06/09/21 06:29 Last Admin: 06/09/21 07:02 Dose: Not Given Documented by: Dextrose/Lactated Ringer's (Dextrose 5%-Lactated Ringers) 1,000 mls @ 125 mls/hr IV ASDIRECTED [facility] Stop: 06/09/21 19:05 Last Admin: 06/09/21 11:21 Dose: 125 mls/hr Documented by: Sodium Chloride (Normal Saline) 1,000 mls @ 999 mls/hr IV ONETIME ONE Stop: 06/09/21 16:01 Last Admin: 06/09/21 15:24 Dose: 999 mls/hr Documented by: Ketorolac Tromethamine (Ketorolac 30 Mg/Ml Sdv) Confirm Administered Dose 30 mg .ROUTE .STK-MED ONE Stop: 06/09/21 06:46 Ketorolac Tromethamine (Ketorolac 30 Mg/Ml Sdv) 30 mg IVPUSH Q6H [facility] Stop: 06/10/21 01:01 Last Admin: 06/10/21 02:34 Dose: 30 mg Documented by: Lidocaine HCl (Lidocaine 1% 10 Ml Mdv) 10 ml .ROUTE .STK-MED ONE Stop: 06/09/21 03:01 Meperidine HCl (Meperidine 50 Mg/Ml Vial) 25 mg IVPUSH ONETIME PRN PRN Reason: Shivering Metoclopramide HCl (Metoclopramide 10 Mg/2 Ml Sdv) 10 mg IVPUSH ONETIME ONE Stop: 06/09/21 06:31 Last Admin: 06/09/21 06:59 Dose: Not Given Documented by: Morphine Sulfate (Morphine Pf 10 Mg/10 Ml Sdv) Confirm Administered Dose 10 mg .ROUTE .STK-MED ONE Stop: 06/09/21 06:51 Ondansetron HCl (Ondansetron 4 Mg/2 Ml Sdv) Confirm Administered Dose 4 mg .ROUTE .STK-MED ONE Stop: 06/09/21 06:46 Ondansetron HCl (Ondansetron 4 Mg/2 Ml Sdv) 4 mg IVPUSH ONETIME PRN PRN Reason: Nausea/Vomiting Oxytocin (Oxytocin 10 Units/1 Ml Sdv) Confirm Administered Dose 10 unit .ROUTE .STK-MED ONE Stop: 06/09/21 06:46 Sodium Chloride (Sodium Chloride 0.9% 10 Ml Syringe) 10 ml FLUSH ASDIRECTED PRN PRN Reason: Keep Vein Open
== END 2021-06-12 12:30 | disposition home or self-care (01) | DRG 540 ==
LOC: JD.OB 05:35
PROVIDERS: ADMIT Obstetrics & Gynecology; ATTEND Obstetrics & Gynecology
PROC: 10D00Z1 Extraction of Products of Conception, Low, Open Approach (ICD-10-PCS; principal; 2021-06-09)
DX: O34.211 Maternal care for low transverse scar from previous cesarean delivery (principal); Z37.0 Single live birth; O99.62 Diseases of the digestive system complicating childbirth; K21.9 Gastro-esophageal reflux disease without esophagitis; Z20.822 Contact with and (suspected) exposure to COVID-19; Z3A.37 37 weeks gestation of pregnancy; R51.9 Headache, unspecified; B94.8 Sequelae of other specified infectious and parasitic diseases
CPT/HCPCS: 01961; 36415; 59025; 85025; 86592; 86850; 86900; 86901; 94762; A9270-GY; J0690; J1885; J2270; J2405; J2590; J3490; J7030; J7120; J7121; U0002